=== PATIENT | female | born 1975 | race Hispanic/Latino ===

== ENCOUNTER 2018-10-13 05:05 | Emergency (ER) | payer BC, SELFPAY ==
[2018-10-13] MEDS ORDERED: Ketorolac Tromethamine 60 MG/2 ML VIAL ONE (05:22)
[2018-10-13] MEDS ORDERED: Dexamethasone 10 MG/ML VIAL ONE (05:22)
== END 2018-10-13 05:51 | disposition home or self-care (01) ==
LOC: ERS 05:05
DX: J02.9 Acute pharyngitis, unspecified (principal); H92.02 Otalgia, left ear; E10.9 Type 1 diabetes mellitus without complications
CPT/HCPCS: 96372; J1100; J1885

== ENCOUNTER 2019-02-03 21:17 | Emergency (ER) | payer SELFPAY ==
[2019-02-03] MEDS ORDERED: Acetaminophen 500 MG TAB ONE (22:50)
[2019-02-03 23:17] LABS: Hemoglobin 15.8 g/dL (12.0-16.0); Mean Corpuscular HGB CONC 34.6 g/dL (32.0-36.0); Mean Corpuscular Hemoglobin 30.3 pg (27.0-31.0); Mean Corpuscular Volume 87.6 fL (78.0-98.0); Mean Platelet Volume 9.2 fL (7.4-10.4); Platelet Count 166 thou/uL (130-400); RBC Distribution Width 12.1 % (11.5-14.5); Red Blood Cell (RBC) Count 5.23 mill/uL (4.20-5.40); White Blood Cell (WBC) Count 4.6 thou/uL (4.8-10.8)
[2019-02-03 23:35] LABS: ALT (SGPT) 37 U/L (8-55); AST (SGOT) 33 U/L (5-34); Albumin 4.1 g/dL (3.5-5.0); Alkaline Phosphatase 161 U/L (40-150); Anion Gap 16 mmol/L (10-20); BUN (Urea Nitrogen) 9 mg/dL (7.0-18.7); Bilirubin, Total 0.8 mg/dL (0.2-1.2); Calc. Creatinine Clearance 0 mL/min (70-130); Calcium 9.2 mg/dL (7.8-10.44); Carbon Dioxide 19 mmol/L (22-29); Chloride 103 mmol/L (98-107); Estimated GFR-MDRD 89; Globulin 3.6 g/dL (2.4-3.5); Glucose 269 mg/dL (70-105); Potassium 3.8 mmol/L (3.5-5.1); Protein, Total 7.7 g/dL (6.0-8.3); Sodium 134 mmol/L (136-145)
[2019-02-03 23:41] LABS: Band 11 % (5-11); Eosinophils 1 % (0-10); Lymphocytes 24 % (21-51); MDiff Complete? YES; Monocytes 4 % (0-10); Neutrophil 58 % (42-75); Reactive Lymphocytes 2 % (0-10)
--- NOTE | 2019-02-03 23:53 | CT ---
FCT head without contrast: Multiple axial tomograms obtained through the head without IV enhancement. INDICATIONS: Headache COMPARISON: None FINDINGS: Ventricles have normal size and position. No evidence of intracranial mass, hemorrhage, edema, or infarct. Visualized sinuses and mastoids appear clear. Bony calvarium appears unremarkable. IMPRESSION: No acute finding
[2019-02-04 00:50] LABS: Bilirubin Negative (Negative); Blood, Urine Negative (Negative); Clarity CLEAR (Clear); Glucose, Urine (Dipstick) >=1000 mg/dL (Negative); Leukocyte Negative (Negative); Nitrite Negative (Negative); Protein, Urine (Dipstick) 30 mg/dL (Neg-Trace); Specific Gravity, Urine 1.044 (1.002-1.036)
[2019-02-04 00:51] LABS: Pregnancy Test - Urine (BHCG) Negative (Negative); Pregu Control Background? CLEAR/WHITE (CLR/WHITE); Pregu Control Bar Appear? YES (CONTROL BAR); Specific Gravity 1.044 (1.002-1.036)
[2019-02-04 00:52] LABS: Bacteria/HPF 1+ HPF (None Seen); Hyaline Casts/LPF 4-6 HYALINE CAST LPF (0-3 Hyaline); Pathc Cast-AUWi Flag 1.08 (0-2.49)
== END 2019-02-04 01:57 | disposition home or self-care (01) ==
LOC: ERS 21:17
DX: R51 Headache (principal); E10.9 Type 1 diabetes mellitus without complications
CPT/HCPCS: 36415; 70450; 80053; 81003; 81015; 81025; 85025; 87804; 93005

== ENCOUNTER 2019-05-23 07:10 | Emergency (ER) | payer SELFPAY ==
--- NOTE | 2019-05-23 07:50 | RAD ---
EXAM: Chest Two Views 05/23/2019 7:48 AM HISTORY: Shortness of breath COMPARISON: None. FINDINGS: Heart: Normal in size and contour. Pulmonary vessels: Normal. Costophrenic angles: Clear. Lungs: No confluent pneumonia, overt edema, pleural effusion, or other acute process. Pneumothorax: None. Osseous structures:Intact. Additional findings: None. IMPRESSION: No significant acute intrathoracic disease.
[2019-05-23] MEDS ORDERED: Ketorolac Tromethamine 60 MG/2 ML VIAL ONE (07:58)
--- NOTE | 2019-05-26 13:04 | EKG ---
Test Reason : Blood Pressure : / mmHG Vent. Rate : 079 BPM Atrial Rate : 079 BPM P-R Int : 140 ms QRS Dur : 072 ms QT Int : 386 ms P-R-T Axes : 061 015 056 degrees QTc Int : 442 ms Sinus rhythm with frequent Premature ventricular complexes in a pattern of bigeminy Otherwise normal ECG Confirmed by ANNEMARIE CARPIO, SUNDAR Wilkerson ([id number]), news video editor BRADLEY LIEBERMAN ([id number]) on 05/26/2019 1:04:07 PM Referred By: Confirmed By:SUNDAR SHARPE MD
== END 2019-05-23 08:30 | disposition home or self-care (01) ==
LOC: ERS 07:10
DX: J02.9 Acute pharyngitis, unspecified (principal); R07.89 Other chest pain; E10.9 Type 1 diabetes mellitus without complications; Z79.84 Long term (current) use of oral hypoglycemic drugs
CPT/HCPCS: 71046; 93005; 96372; J1885

== ENCOUNTER 2019-05-23 16:46 | Observation (INO) | payer SELFPAY ==
[~2019-05-23 16:46] MED LIST: ISOVUE-370 76%-LOCM 1 ML ONE
[2019-05-23 19:21] LABS: #Basophils 0.1 thou/uL (0.0-0.2); #Eosinphils 0.1 thou/uL (0.0-0.7); #Monocytes 0.5 thou/uL (0.11-0.59); #Neutrophils 7.4 thou/uL (1.40-6.50); %Basophils 0.6 % (0.0-1.0); %Eosinophils 1.3 % (0.0-10.0); %Monocytes 4.8 % (0.0-10.0); %Neutrophils 66.3 % (42.0-75.0); Hemoglobin 14.9 g/dL (12.0-16.0); Mean Corpuscular HGB CONC 34.8 g/dL (32.0-36.0); Mean Corpuscular Hemoglobin 30.9 pg (27.0-31.0); Mean Corpuscular Volume 88.8 fL (78.0-98.0); Platelet Count 249 thou/uL (130-400); RBC Distribution Width 12.4 % (11.5-14.5); Red Blood Cell (RBC) Count 4.83 mill/uL (4.20-5.40); White Blood Cell (WBC) Count 11.2 thou/uL (4.8-10.8)
[2019-05-23 19:42] LABS: ALT (SGPT) 12 U/L (8-55); AST (SGOT) 15 U/L (5-34); Albumin 3.9 g/dL (3.5-5.0); Alkaline Phosphatase 96 U/L (40-150); Anion Gap 10 mmol/L (10-20); BUN (Urea Nitrogen) 16 mg/dL (7.0-18.7); Bilirubin, Total 0.3 mg/dL (0.2-1.2); CK (CPK) 40 U/L (29-168); Calc. Creatinine Clearance 0 mL/min (70-130); Calcium 9.4 mg/dL (7.8-10.44); Carbon Dioxide 27 mmol/L (22-29); Chloride 103 mmol/L (98-107); Estimated GFR-MDRD Greater than 90; Globulin 2.7 g/dL (2.4-3.5); Glucose 123 mg/dL (70-105); Potassium 4.2 mmol/L (3.5-5.1); Protein, Total 6.6 g/dL (6.0-8.3); Sodium 136 mmol/L (136-145)
--- NOTE | 2019-05-23 20:07 | CT ---
CT SOFT TISSUE NECK WITH IV CONTRAST 05/23/19 PROVIDED CLINICAL HISTORY: Tracheal pain and globus. FINDINGS: Minimal mucosal thickening involving the left maxillary sinus inferiorly. The visualized paranasal s inuses appear otherwise clear. The visualized globes and other visualized orbital contents appear nor mal. The submandibular and parotid glands demonstrate a normal CT appearance. The palatine tonsils appear normal. The epiglottis and aryepiglottic folds appear normal. The trachea , larynx, hypopharynx, and oral cavity appear normal. The osseous structures demonstrate no concerning lytic or blastic lesions. The regional major vascula r structures demonstrate no acute abnormality. No evidence for regional lymph node enlargement. IMPRESSION: No evidence for an acute process. POS: [facility]
[2019-05-23 22:34] LABS: Troponin I 0.018 ng/mL (< 0.028)
[2019-05-23 23:29] VITALS: BMI 27.1
[2019-05-23] MEDS ORDERED: Ketorolac Tromethamine 30 MG/ML VIAL IVP SCH (23:45)
[2019-05-24 00:07] LABS: Troponin I Less than 0.010 ng/mL (< 0.028)
[2019-05-24 02:49] LABS: Troponin I Less than 0.010 ng/mL (< 0.028)
[2019-05-24] MEDS ORDERED: Ibuprofen 600 MG TAB PO PRN (06:40)
[2019-05-24] MEDS ORDERED: Ibuprofen 600 MG TAB PO SCH (06:45)
[2019-05-24] MEDS ORDERED: Aspirin 325 MG TAB PO SCH (08:00)
[2019-05-24] MEDS ORDERED: Acetaminophen 325 MG TAB PO PRN (09:27)
[2019-05-24] MEDS ORDERED: Senokot S 8.6-50 MG TAB PO PRN (09:27)
[2019-05-24] MEDS ORDERED: Dextrose 5% in Water 1,000 ML IV PRN (09:42)
[2019-05-24] MEDS ORDERED: Insulin Regular 300 UNITS/3 ML VIAL SC PRN ×2 (09:42)
[2019-05-24] MEDS ORDERED: Dextrose 50% Abboject 50 ML SYRINGE SLOW IVP PRN (09:42)
[2019-05-24] MEDS ORDERED: HumaLOG 300 UNITS/3 ML VIAL SC PRN (09:42)
[2019-05-24 10:09] LABS: Cardiac Risk 5.3 (Less than 4.5)
--- NOTE | 2019-05-24 10:23 | HP ---
PRIMARY CARE PHYSICIAN: Praveen Harrison DO. CHIEF COMPLAINT: Upper chest discomfort with difficulty breathing, which is intermittent for the last 3 weeks. HISTORY OF PRESENT ILLNESS: Ms. Pappas is a 43-year-old female, who presented to the emergency room on 05/23 for evaluation of shortness of breath. She reports that she has been having these episodes over the last 3 weeks intermittently, lasts about 10-15 minutes, where she feels this pressure pain in upper chest that radiates into her neck, describes as kind of a choking sensation. Reports that when she gets up and walks around and tries to relax and slow her breathing, it gets better. She reports that it has woken her up from sleep. EKG in the emergency room showed sinus rhythm 79 beats per minute with frequent premature ventricular complex in a pattern of bigeminy. ST segments were normal. T-waves were normal. Mckinney was normal. Chest x-ray was negative. No acute process. Troponins x4 were undetectable. Labs were mostly unremarkable. Past medical history includes she is diabetic type 1, but does take some metformin and Tresiba, and hyperlipidemia. The patient had a CT of the neck while in the emergency room, which showed no acute findings. She was admitted to the observation unit for further risk stratification and management. REVIEW OF SYSTEMS: Reports chest pain. Reports some shortness of breath. Feels something is in her throat. Reports that she has a hard time breathing when these episodes appear. She denies cough, cyanosis, or sputum. Denies stridor. Denies wheezing. All other systems are negative unless mentioned in the HPI. PAST MEDICAL HISTORY: Pertinent for history of type 1 diabetes, hyperlipidemia. PAST SURGICAL HISTORY: Tubal ligation and also had a hip surgery on the left. PSYCHIATRIC HISTORY: None. SOCIAL HISTORY: Denies any alcohol or drug use. Has no smoking history. Lives at home with her family. FAMILY HISTORY: She denies any family history of any coronary artery disease, heart attacks, or strokes. Does report both mom and dad have diabetes. KNOWN ALLERGIES: Penicillins. HOME MEDICATIONS: Include, 1. Advil 600 mg p.o. daily. 2. Tresiba 40 units subcu b.i.d. 3. Metformin 1000 mg p.o. b.i.d. 4. Atorvastatin 10 mg p.o. q.p.m. PHYSICAL EXAMINATION: VITAL SIGNS: Blood pressure 100/57, pulse 76, respiratory rate 18, pO2 sats 98% on room air. CONSTITUTIONAL: The patient appears in no distress. She is alert and oriented to person, place, and time. HEENT: Head is atraumatic and normocephalic. Eyes; eyelids are normal to inspection. Pupils equally round and reactive to light. ENT; mouth exam is normal. Pharynx exam is normal. There is no tongue elevation. Mucous membranes are moist. NECK: Normal range of motion. No tenderness. No signs of any meningismus. RESPIRATORY/CHEST: Breath sounds are clear. Chest movement is symmetrical. CARDIOVASCULAR: Regular heart rate and rhythm. Frequent PVCs. Heart sounds are normal. S1 and S2. No murmurs. ABDOMEN: Nontender. Bowel sounds are heard. BACK: Normal range of motion. No tenderness. No CVA tenderness. EXTREMITIES: Upper extremity inspection is normal. No abrasions. No contusions. Radial pulses are normal. Lower extremity, normal range of motion. Motor strength is normal. Radial pulses are normal. Lower extremity, normal inspection, no abrasions. Pedal pulses are normal. NEUROLOGIC: Speech is normal. The patient is oriented to person, place, and time. No focal motor or sensory deficits. SKIN: Warm, dry, and normal in color. PSYCH: Has a normal affect. IMPRESSION AND PLAN: 1. Atypical chest pain in the context of an EKG, which shows frequent premature ventricular complexes in a pattern of bigeminy. She is a type 1 diabetic. She has not had any cardiac testing. We will proceed with a stress test, check lipids, TSH. 2. Type 1 diabetes. We will order Accu-Chek's a.c. and at bedtime. Hold metformin for now. Add a sliding scale insulin for coverage. 3. Hyperlipidemia. We will restart home medications. 4. Gastrointestinal and deep venous thrombosis prophylaxis has been started. 5. Hospital course dependent on clinical findings. Job ID: [id number]
[2019-05-24] MEDS ORDERED: ADENOSINE 60 MG/20 ML VIAL ONE (12:31)
--- NOTE | 2019-05-24 14:38 | NM ---
EXAM: CARDIAC SPECT HISTORY: Chest pain TECHNIQUE: A myocardial perfusion scan was performed using the single isotope 1 day protocol with yolande hnetium 99m sestamibi. [10 mCi] was injected intravenously for the rest exam followed by 30 mCi for the stress study. Pharmacologic stress with adenosine was monitored and interpreted by Dr. Reeder FINDINGS: Homogeneous tracer distribution is seen in the myocardial segments on stress and rest image s without fixed or reversible defects. Gated SPECT LVEF: 61% Wall motion exam: Normal IMPRESSION: Normal myocardial perfusion scan
[2019-05-24] MEDS ORDERED: Atorvastatin Calcium 40 MG TAB PO SCH (15:00)
[2019-05-24 15:32] VITALS: BP 105/57; TEMP 98
[2019-05-24] MEDS ORDERED: Famotidine 20 MG TAB PO SCH (21:00)
[2019-05-25] MEDS ORDERED: Enoxaparin Sodium 30 MG/0.3 ML SYRINGE SC SCH (09:00)
== END 2019-05-24 17:16 | disposition home or self-care (01) ==
LOC: ERS 16:46 → 2SW 20:00
PROVIDERS: ADMIT Internal Medicine; ATTEND Internal Medicine
DX: R07.89 Other chest pain (principal); R06.02 Shortness of breath; R00.8 Other abnormalities of heart beat; E78.5 Hyperlipidemia, unspecified; E10.9 Type 1 diabetes mellitus without complications; Z79.84 Long term (current) use of oral hypoglycemic drugs; Z79.899 Other long term (current) drug therapy; Z88.0 Allergy status to penicillin
CPT/HCPCS: 36415; 36416; 70491; 78452; 80053; 80061; 82550; 83735; 84443; 84484; 85025; 93005; 93017; 96374; A9500; G0378; J0153; J1885; Q9966

== ENCOUNTER 2019-05-28 21:55 | Emergency (ER) | payer SELFPAY ==
[2019-05-28 22:33] LABS: #Eosinphils 0.1 thou/uL (0.0-0.7); #Lymphocytes 2.8 thou/uL (1.20-3.40); #Monocytes 0.5 thou/uL (0.11-0.59); #Neutrophils 4.9 thou/uL (1.40-6.50); %Basophils 0.5 % (0.0-1.0); %Eosinophils 0.9 % (0.0-10.0); %Lymphocytes 34.1 % (21.0-51.0); %Monocytes 5.4 % (0.0-10.0); %Neutrophils 59.1 % (42.0-75.0); Mean Corpuscular HGB CONC 34.4 g/dL (32.0-36.0); Mean Corpuscular Hemoglobin 30.5 pg (27.0-31.0); Mean Corpuscular Volume 88.7 fL (78.0-98.0); Mean Platelet Volume 8.7 fL (7.4-10.4); Platelet Count 221 thou/uL (130-400); RBC Distribution Width 12.2 % (11.5-14.5); White Blood Cell (WBC) Count 8.3 thou/uL (4.8-10.8)
--- NOTE | 2019-05-28 22:39 | RAD ---
Portable chest: HISTORY: Syncope weakness COMPARISON: 07/03/2013 FINDINGS: Lung paiz are clear. Heart and mediastinum appear unremarkable. Vascularity is normal. Visualized osseous structures unremarkable. IMPRESSION: No acute finding
[2019-05-28 22:45] LABS: BHCG - Serum Negative (NEGATIVE); Pregs Control Background? CLEAR/WHITE (CLR/WHITE); Pregs Control Bar Appear? YES (CONTROL BAR)
[2019-05-28 22:50] LABS: ALT (SGPT) 12 U/L (8-55); AST (SGOT) 13 U/L (5-34); Albumin 3.9 g/dL (3.5-5.0); Alkaline Phosphatase 87 U/L (40-150); Anion Gap 13 mmol/L (10-20); BUN (Urea Nitrogen) 15 mg/dL (7.0-18.7); Bilirubin, Total 0.5 mg/dL (0.2-1.2); Calc. Creatinine Clearance 0 mL/min (70-130); Calcium 9.2 mg/dL (7.8-10.44); Carbon Dioxide 23 mmol/L (22-29); Chloride 105 mmol/L (98-107); Estimated GFR-MDRD 88; Globulin 2.7 g/dL (2.4-3.5); Glucose 184 mg/dL (70-105); Potassium 4.1 mmol/L (3.5-5.1); Protein, Total 6.6 g/dL (6.0-8.3); Sodium 137 mmol/L (136-145)
[2019-05-28 22:52] LABS: Acetaminophen Less than 6.0 mcg/mL (10.0-30.0); Alcohol Less than 10 mg/dL (Less than 10); Salicylate Less than 8.0 mg/dL (15.0-30.0)
[2019-05-28] MEDS ORDERED: Lorazepam 2 MG/ML VIAL ONE (22:53)
--- NOTE | 2019-05-28 22:55 | CT ---
CT head without contrast: Multiple axial tomograms obtained through the head without IV enhancement. INDICATIONS: Headache COMPARISON: None FINDINGS: Ventricles have normal size and position. No evidence of intracranial mass, hemorrhage, edema, or infarct. Visualized sinuses and mastoids appear clear. Bony calvarium appears unremarkable. IMPRESSION: No acute finding
--- NOTE | 2019-05-28 22:57 | CT ---
CT cervical spine without contrast: Multiple axial tones obtained through cervical spine with multiplanar reconstruction. INDICATIONS: trauma with cervical spine injury COMPARISON: none FINDINGS: Cervical vertebra maintain normal height and alignment.. Disc spaces are normal. Posterior elements are normally aligned. No evidence of fracture. IMPRESSION: No acute finding
[2019-05-28 23:48] LABS: Bilirubin Negative (Negative); Blood, Urine Negative (Negative); Clarity Clear (Clear); Glucose, Urine (Dipstick) 200 mg/dL (Negative); Leukocyte Negative Leu/uL (Negative); Nitrite Negative (Negative); Protein, Urine (Dipstick) Negative (Neg-Trace); Urobilinogen Normal mg/dL (Less than 2)
[2019-05-29 00:02] LABS: Amphetamine Not Detected (NotDetected); Barbiturates Screen Not Detected (NotDetected); Benzodiazepine Screen Not Detected (NotDetected); Cocaine Metabolite Screen Not Detected (NotDetected); Medtox Control Line Valid? VALID (VALID); Medtox Reader # READER 4; Methadone Not Detected (NotDetected); Methamphetamine Not Detected (NotDetected); Opiate Screen Not Detected (NotDetected); Oxycodone Screen Not Detected (NotDetected); Phencyclidine (PCP) Not Detected (NotDetected); THC/Cannabinoid Screen Not Detected (NotDetected); Tricyclic Screen Not Detected (NotDetected)
== END 2019-05-29 00:06 | disposition home or self-care (01) ==
LOC: ERS 21:55
DX: R55 Syncope and collapse (principal); E10.9 Type 1 diabetes mellitus without complications; Z79.84 Long term (current) use of oral hypoglycemic drugs; Z79.899 Other long term (current) drug therapy
CPT/HCPCS: 36415; 70450; 71045; 72125; 80053; 80306; 80307; 81003; 84484; 84703; 85025; 93005; 94760; 96374; J2060

== ENCOUNTER 2020-07-21 16:40 | Observation (INO) | payer OTHER, SELFPAY ==
[2020-07-21 17:17] LABS: #Lymphocytes 0.9 thou/uL (1.20-3.40); #Monocytes 0.5 thou/uL (0.11-0.59); #Neutrophils 8.9 thou/uL (1.40-6.50); %Eosinophils 0.2 % (0.0-10.0); %Lymphocytes 8.5 % (21.0-51.0); %Monocytes 4.4 % (0.0-10.0); %Neutrophils 86.9 % (42.0-75.0); Hemoglobin 15.4 g/dL (12.0-16.0); Mean Corpuscular HGB CONC 35.2 g/dL (32.0-36.0); Mean Corpuscular Hemoglobin 31.1 pg (27.0-31.0); Mean Corpuscular Volume 88.5 fL (78.0-98.0); Mean Platelet Volume 9.2 fL (7.4-10.4); Platelet Count 219 thou/uL (130-400); Red Blood Cell (RBC) Count 4.94 mill/uL (4.20-5.40); White Blood Cell (WBC) Count 10.3 thou/uL (4.8-10.8)
--- NOTE | 2020-07-21 17:26 | CT ---
Head CT without contrast 07/21/2020: COMPARISON: 05/28/2019 HISTORY: Lightheaded and dizzy, syncope, possible seizure activity TECHNIQUE: Axial CT imaging at 5 mm intervals from vertex through skull base without contrast FINDINGS: The visualized paranasal sinuses and mastoid air cells appear well-aerated. No displaced ca lvarial fracture, intracranial hemorrhage, midline shift, or mass effect. IMPRESSION: No acute findings. Results called to Dr. Diaz at 5:22 PM 07/21/2020
[2020-07-21 17:29] LABS: BHCG - Serum Negative (NEGATIVE); Pregs Control Background? CLEAR/WHITE (CLR/WHITE); Pregs Control Bar Appear? YES (CONTROL BAR)
--- NOTE | 2020-07-21 17:35 | RAD ---
Portable frontal chest radiograph: 07/21/2020 COMPARISON: 05/28/2019 HISTORY: Syncope, pain FINDINGS: Lungs are clear. Heart and mediastinal contours appear within normal limits. IMPRESSION: No acute findings.
--- NOTE | 2020-07-21 17:39 | CT ---
CT angiogram chest: 07/21/2020 COMPARISON: None HISTORY: Chest pain, lightheaded, syncope TECHNIQUE: Axial CT imaging at 2.5 mm intervals through the chest with IV contrast using CT angiogram protocol. Coronal and oblique sagittal 3-D reformatted imaging obtained. FINDINGS: The visualized upper abdomen appears grossly unremarkable. No pleural, pericardial, or medi astinal fluid is seen. No lymphadenopathy is noted within the chest. No pneumothorax. No significant pulmonary parenchymal opacity. Mild bibasilar atelectatic change. No evidence for acute pulmonary arterial embolism. No acute osseous abnormality. IMPRESSION: No acute findings.
[2020-07-21 17:46] LABS: ALT (SGPT) 17 U/L (8-55); AST (SGOT) 12 U/L (5-34); Albumin 3.9 g/dL (3.5-5.0); Alkaline Phosphatase 99 U/L (40-110); Anion Gap 15 mmol/L (10-20); BUN (Urea Nitrogen) 10 mg/dL (7.0-18.7); Calc. Creatinine Clearance 0 mL/min (70-130); Calcium 8.1 mg/dL (7.8-10.44); Carbon Dioxide 20 mmol/L (22-29); Chloride 101 mmol/L (98-107); Estimated GFR-MDRD 84; Glucose 335 mg/dL (70-105); Lipase 11 U/L (8-78); Potassium 3.8 mmol/L (3.5-5.1); Protein, Total 6.9 g/dL (6.0-8.3); Sodium 132 mmol/L (136-145)
[2020-07-21] MEDS ORDERED: Enoxaparin Sodium 100 MG/ML SYRINGE ONE (19:23)
[2020-07-21 20:34] LABS: Troponin I Less than 0.010 ng/mL (< 0.028)
[2020-07-21 21:55] VITALS: BMI 26.4
[2020-07-21] MEDS ORDERED: Dextrose 5% in Water 1,000 ML IV PRN (22:07)
[2020-07-21] MEDS ORDERED: Dextrose 50% Abboject 50 ML SYRINGE SLOW IVP PRN (22:07)
[2020-07-21] MEDS ORDERED: HumaLOG 300 UNITS/3 ML VIAL SC PRN (22:07)
[2020-07-21 23:37] LABS: Troponin I Less than 0.010 ng/mL (< 0.028)
[2020-07-21] MEDS ORDERED: Ibuprofen 600 MG TAB PO PRN (23:43)
--- NOTE | 2020-07-21 23:53 | PDOC.HHP ---
Hospitalist HPI - History of Present Illness left side weakness History of Present Illness: PCP: Dr. Andrade Patient is a 44-year-old female with past medical history significant for hyperlipidemia, GERD, diabetes type 2, and depression. She states that she woke up this morning and her left arm was tingling. She was able to go to work but throughout the day she began to feel dizzy, had chest pain, with headache and nausea. As her shift went on she noticed she was getting weaker on her left side. At one point she feels like she almost passed out and her coworker was able to walk her to the health office. EMS was called at that time and brought her to the hospital. She states when she was in the ambulance she was unable to feel the paramedics touch her left side. Since that time she has recovered some sensation in her left side but still feels she is extremely weak in her upper and lower extremity on the left. The dizziness has resolved along with the headache and nausea. She still experiences some chest pain, however, it is reproducible with palpation and she states it is also in her upper shoulders. 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 She states that this chest pain has been going on for months. Patient states she has been compliant with her medications although she has not been checking her blood sugars at home. ED Course: VITAL SIGNS TueJul 21, 2020 16:45 KASIA Cordova Cullen BP: 115/81, Pulse: 105, Resp: 16, Temp: 99.2 (Oral), Pain: 8, O2 sat: 94 on ( Room Air), Time: 07/21/2020 16:45. VITAL SIGNS TueJul 21, 2020 17:54 KASIA Cordova Cullen BP: 119/79, Pulse: 86, Resp: 16, O2 sat: 97 on (Room Air), Time: 07/21/2020 17: 54. VITAL SIGNS TueJul 21, 2020 17:58 KASIA Cordova Cullen Resp: 17, Temp: 98.4 (Oral), Pain: 7.5, Time: 07/21/2020 17:58. VITAL SIGNS TueJul 21, 2020 19:14 KASIA Jain Julia BP: 112/74, Pulse: 90, Resp: 20, Pain: 4, O2 sat: 98 on (Room Air), Time: 2019 19:14. Today in the ER they completed lab work, EKG, brain CT, chest x-ray, chest and thorax CTA. She had full dose aspirin and full dose Lovenox administered along with 1 L of normal saline. Hospitalist ROS - Review of Systems Constitutional: reports: weakness Respiratory: denies: cough, dry, shortness of breath, hemoptysis, SOB with excertion, pleuritic pain, sputum, wheezing, other Cardiovascular: reports: chest pain (Reproducible with palpation) Gastrointestinal: reports: nausea (Resolved currently) Musculoskeletal: reports: shoulder pain (Muscular) Neurological: reports: weakness (Left side upper and lower extremity), numbness (Left side) All other systems reviewed; all pertinent +/- noted in HPI/Subj - Medication Medications: Allergies: Penicillin Current medications: metFORMIN TABLET : Strength - 1,000 mg : ORAL Patient Dose: 1000 mg Oral 2 times a day Hospitalist History - Past Medical History Source: patient Cardiac: reports: Hyperlipidemia Gastrointestinal: reports: GERD Psych: reports: Depression Endocrine: reports: Diabetes - Past Surgical History Past Surgical History: reports: Tubal Ligation - Family History Family History: reports: no pertinent history - Social History Smoking Status: Never smoker Alcohol: reports: None Drugs: reports: none Living Situation: With Family Activity level: independent ambulation - Exam General Appearance: NAD, awake alert Neck: supple, no lymphadenopathy Heart: RRR, no murmur, no gallops, no rubs, normal peripheral pulses Respiratory: CTAB, no wheezes, no rales, no ronchi, normal chest expansion Gastrointestinal: soft, non-tender, non-distended, normal bowel sounds, no palpable masses Neurological: cranial nerve grossly intact Neurological - other findings: cerebellar intact, sensation improving to L side Musculoskeletal - other findings: L side numbness/weakness, drift to L arm, drop to L leg, Psychiatric: normal affect Hospitalist Results - Labs Result Diagrams: 07/21/20 17:02 07/21/20 17:02 Lab results: WBC 10.3 thou/uL (4.8-10.8) 07/21/20 17:02 Hgb 15.4 g/dL (12.0-16.0) 07/21/20 17:02 Hct 43.7 % (36.0-47.0) 07/21/20 17:02 MCV 88.5 fL (78.0-98.0) 07/21/20 17:02 Plt Count 219 thou/uL (130-400) 07/21/20 17:02 Neutrophils % 86.9 % (42.0-75.0) H 07/21/20 17:02 Sodium 132 mmol/L (136-145) L 07/21/20 17:02 Potassium 3.8 mmol/L (3.5-5.1) 07/21/20 17:02 Chloride 101 mmol/L (98-107) 07/21/20 17:02 Carbon Dioxide 20 mmol/L (22-29) L 07/21/20 17:02 BUN 10 mg/dL (7.0-18.7) 07/21/20 17:02 Creatinine 0.74 mg/dL (0.6-1.1) 07/21/20 17:02 Glucose 335 mg/dL (70-105) H 07/21/20 17:02 Calcium 8.1 mg/dL (7.8-10.44) 07/21/20 17:02 Total Bilirubin 1.0 mg/dL (0.2-1.2) 07/21/20 17:02 AST 12 U/L (5-34) 07/21/20 17:02 ALT 17 U/L (8-55) 07/21/20 17:02 Alkaline Phosphatase 99 U/L (40-110) 07/21/20 17:02 Troponin I Less than 0.010 ng/mL (< 0.028) 07/21/20 23:05 Serum Total Protein 6.9 g/dL (6.0-8.3) 07/21/20 17:02 Albumin 3.9 g/dL (3.5-5.0) 07/21/20 17:02 Lipase 11 U/L (8-78) 07/21/20 17:02 Laboratory Tests 07/21/20 07/21/20 07/21/20 17:02 17:08 19:39 Troponin I Less than 0.010 Less than 0.010 Serum , Qual Negative - EKG Interpretation EKG: Sinus tachycardia 101 beats a minute - Radiology Interpretation CT scan - chest Status: report reviewed by me Additional Comment: TECHNIQUE: Axial CT imaging at 2.5 mm intervals through the chest with IV contrast using CT angiogram protocol. Coronal and oblique sagittal 3-D reformatted imaging obtained. FINDINGS: The visualized upper abdomen appears grossly unremarkable. No pleural , pericardial, or medi astinal fluid is seen. No lymphadenopathy is noted within the chest. No pneumothorax. No significant pulmonary parenchymal opacity. Mild bibasilar atelectatic change. No evidence for acute pulmonary arterial embolism. No acute osseous abnormality. IMPRESSION: No acute findings. Chest x-ray Status: image reviewed by me, report reviewed by me Additional Comment: FINDINGS: Lungs are clear. Heart and mediastinal contours appear within normal limits. IMPRESSION: No acute findings. CT scan - head Status: report reviewed by me Additional Comment: FINDINGS: The visualized paranasal sinuses and mastoid air cells appear well- aerated. No displaced ca lvarial fracture, intracranial hemorrhage, midline shift, or mass effect. IMPRESSION: No acute findings. 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 PT and OT evaluation, patient normally fully ambulatory independently however is needing assistance tonight Start aspirin and low-dose statin FLP in a.m. MRI brain, ultrasound of carotids, echo ordered for a.m. Dysphagia screening prior to eating Chest pain Troponins x3 were negative No events on telemetry Pain is reproducible with palpation and has been active for months PRN pain medication available for patient Diabetes type 2 Monitor Accu-Cheks AC at bedtime Hold metformin at this time due to CTA completed in ER Mild sliding scale insulin Diet heart healthy and carb control Hyponatremia Start IV fluids Repeat BMP in a.m. History of hyperlipidemia FLP in a.m. Low-dose statin ordered GERD Protonix restarted, patient takes at home VTE and GI prophylaxis in place CODE STATUS: Full Surrogate decision-maker: , Huseyin Pappas
[2020-07-22] MEDS: Sodium Chloride 0.9% 1,000 ML IV SCH ×2 (01:51→17:53)
[2020-07-22 04:54] LABS: #Lymphocytes 1.9 thou/uL (1.20-3.40); #Monocytes 0.4 thou/uL (0.11-0.59); #Neutrophils 4.9 thou/uL (1.40-6.50); %Basophils 0.6 % (0.0-1.0); %Eosinophils 0.5 % (0.0-10.0); %Lymphocytes 25.8 % (21.0-51.0); %Monocytes 5.3 % (0.0-10.0); %Neutrophils 67.8 % (42.0-75.0); Mean Corpuscular HGB CONC 35.2 g/dL (32.0-36.0); Mean Corpuscular Hemoglobin 31.8 pg (27.0-31.0); Mean Corpuscular Volume 90.4 fL (78.0-98.0); Platelet Count 189 thou/uL (130-400); RBC Distribution Width 11.9 % (11.5-14.5); Red Blood Cell (RBC) Count 4.39 mill/uL (4.20-5.40); White Blood Cell (WBC) Count 7.3 thou/uL (4.8-10.8)
[2020-07-22 05:19] LABS: Anion Gap 11 mmol/L (10-20); BUN (Urea Nitrogen) 9 mg/dL (7.0-18.7); Calc. Creatinine Clearance 103 mL/min (70-130); Calcium 7.6 mg/dL (7.8-10.44); Carbon Dioxide 21 mmol/L (22-29); Cardiac Risk 6.1 (Less than 4.5); Chloride 106 mmol/L (98-107); Cholesterol 207 mg/dl (< 200 Desired); Estimated GFR-MDRD Greater than 90; Glucose 246 mg/dL (70-105); HDL Cholesterol 34 mg/dL (>60 Neg Risk); Potassium 3.4 mmol/L (3.5-5.1); Sodium 135 mmol/L (136-145); Triglycerides 435 mg/dL (Less than 150)
[2020-07-22] MEDS: HumaLOG 300 UNITS/3 ML VIAL SC PRN ×2 (07:30→12:04)
--- NOTE | 2020-07-22 07:30 | ULT ---
BILATERAL CAROTID DUPLEX ULTRASOUND: HISTORY: Syncope. Chest pain. Lightheadedness. TECHNIQUE: Grayscale, color-flow and spectral Doppler ultrasound imaging of the extracranial carotid artery syst ems and vertebral arteries was performed bilaterally. FINDINGS: No large amount of echogenic plaque is seen involving the common carotid or internal carotid arteries . The peak systolic velocity in the right ICA measures 81.4 cm/s. The peak systolic velocity in the ri ght CCA measures 87.1 cm/s. The peak systolic velocity in the left ICA measures 71.5 cm/s. The peak systolic velocity in the l eft CCA measures 94.6 cm/s. The right IC/CC ration is0.93. The left IC/CC ratio is 0.73. Vertebral flow: antegrade, bilaterally. . Incidentals: Enlarged right neck lymph nodes. IMPRESSION: 1. No hemodynamically significant stenosis of either cervical carotid artery 2. Enlarged right neck lymph node with preserved fatty hilum measuring 1.9 x 0.9 cm. Second right nec k lymph node without fatty hilum measuring 1.2 x 0.6 cm. Postcontrast soft tissue neck CT is recommended. CODE T
--- NOTE | 2020-07-22 08:41 | MRI ---
Exam: Brain MRI without contrast HISTORY: Transient ischemic attack COMPARISON: None FINDINGS: Calvarial marrow signal intensity: Appropriate T1 signal Gradient echo sequence: No hemorrhage Brain parenchyma: No mass, mass effect or midline shift. Brain volume, age-appropriate. Cortical bourgeois-white matter differentiation: Preserved Restricted diffusion: Central arterial flow voids are maintained. Absent restricted diffusion White matter signal intensities: T2, FLAIR white matter hyperintensities due to chronic small vessel ischemic changes Sinuses: Adequate aeration of the paranasal sinuses and mastoid air cells. IMPRESSION: Absent restricted diffusion. No acute infarct.
[2020-07-22] MEDS: Pantoprazole 40 MG GRANULES PACKET PO SCH (08:49)
[2020-07-22] MEDS: Aspirin 81 mg Enteric Coated Tablet PO SCH (08:49)
[2020-07-22] MEDS: Insulin Glargine 40 UNITS in Pre-Filled Syringe 1 EACH SC SCH ×2 (08:49→20:25)
[2020-07-22] MEDS ORDERED: INSULIN DEGLUDEC 40 UNIT SQ SCH (09:00)
--- NOTE | 2020-07-22 12:42 | CON ---
NEUROLOGY CONSULTATION DATE OF CONSULTATION: 07/22/2020 REASON FOR CONSULTATION: Acute onset left-sided weakness. HISTORY OF PRESENT ILLNESS: Ms. Pappas is a 44-year-old female with medical history significant for hyperlipidemia, gastroesophageal reflux disease, diabetes, and depression, presented on the morning of 07/21/2020 with left arm tingling and paresthesias. Per patient, she was able to go to work but felt dizzy all day with chest pain and nausea and headache. As she went on, she noted she was getting weaker on the left side and fell as she almost passed out. EMS was called and she was brought to the hospital in the ambulance. In the ambulance, she was unable to feel the paramedics touch her left side. Her sensation improved when she arrived in the emergency room and dizziness resolved along with headache and nausea. She still has occasional chest pain. 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 The patient denies problems with speech, swallowing, recent illness or exposure to COVID. REVIEW OF SYSTEMS: All 14 systems were reviewed and were negative except the pertinent positive and negative mentioned in the HPI. ED course in the emergency room; EKG was done, which shows normal sinus rhythm. Head CT did not reveal any acute intracranial pathology. Chest x-ray was essentially unremarkable. She was given a full dose of aspirin and full dose of Lovenox along with normal saline and transferred to the floor for further evaluation. MEDICATIONS: Home medications; metformin 1000 mg two times a day. ALLERGIES: PENICILLIN. PAST MEDICAL HISTORY: Hyperlipidemia, gastroesophageal reflux disease, depression, diabetes. PAST SURGICAL HISTORY: Tubal ligation. FAMILY HISTORY: No family history of stroke. SOCIAL HISTORY: The patient denies smoking, alcohol, illegal drug use. PHYSICAL EXAMINATION: General Appearance: NAD, awake alert Neck: supple, no lymphadenopathy Heart: RRR, no murmur, no gallops, no rubs, normal peripheral pulses Respiratory: CTAB, no wheezes, no rales, no ronchi, normal chest expansion Gastrointestinal: soft, non-tender, non-distended, normal bowel sounds, no palpable masses Neurological: Mental status; the patient is alert and oriented to person, place , and time. Speech is clear. Recent and remote memory intact. Cranial nerves 2 through 12 intact. Motor; muscle tone and bulk are normal. Strength, mild left hemiparesis. Sensory, decreased sensation to touch on the left upper and lower extremity. Positive left pronator drift. Gait deferred due to the patient's safety reason. DATA REVIEWED: I reviewed the labs, which are significant for hyponatremia [address] scan did not reveal any acute intracranial pathology. Lab results: WBC 10.3 thou/uL (4.8-10.8) 07/21/20 17:02 Hgb 15.4 g/dL (12.0-16.0) 07/21/20 17:02 Hct 43.7 % (36.0-47.0) 07/21/20 17:02 MCV 88.5 fL (78.0-98.0) 07/21/20 17:02 Plt Count 219 thou/uL (130-400) 07/21/20 17:02 Neutrophils % 86.9 % (42.0-75.0) H 07/21/20 17:02 Sodium 132 mmol/L (136-145) L 07/21/20 17:02 Potassium 3.8 mmol/L (3.5-5.1) 07/21/20 17:02 Chloride 101 mmol/L (98-107) 07/21/20 17:02 Carbon Dioxide 20 mmol/L (22-29) L 07/21/20 17:02 BUN 10 mg/dL (7.0-18.7) 07/21/20 17:02 Creatinine 0.74 mg/dL (0.6-1.1) 07/21/20 17:02 Glucose 335 mg/dL (70-105) H 07/21/20 17:02 Calcium 8.1 mg/dL (7.8-10.44) 07/21/20 17:02 Total Bilirubin 1.0 mg/dL (0.2-1.2) 07/21/20 17:02 AST 12 U/L (5-34) 07/21/20 17:02 ALT 17 U/L (8-55) 07/21/20 17:02 Alkaline Phosphatase 99 U/L (40-110) 07/21/20 17:02 Troponin I Less than 0.010 ng/mL (< 0.028) 07/21/20 23:05 Serum Total Protein 6.9 g/dL (6.0-8.3) 07/21/20 17:02 Albumin 3.9 g/dL (3.5-5.0) 07/21/20 17:02 Lipase 11 U/L (8-78) 07/21/20 17:02 Laboratory Tests 07/21/20 07/21/20 07/21/20 17:02 17:08 19:39 Troponin I Less than 0.010 Less than 0.010 Serum , Qual Negative - EKG Interpretation EKG: Sinus tachycardia 101 beats a minute - Radiology Interpretation CT scan - chest Status: report reviewed by me Additional Comment: TECHNIQUE: Axial CT imaging at 2.5 mm intervals through the chest with IV contrast using CT angiogram protocol. Coronal and oblique sagittal 3-D reformatted imaging obtained. FINDINGS: The visualized upper abdomen appears grossly unremarkable. No pleural , pericardial, or medi astinal fluid is seen. No lymphadenopathy is noted within the chest. No pneumothorax. No significant pulmonary parenchymal opacity. Mild bibasilar atelectatic change. No evidence for acute pulmonary arterial embolism. No acute osseous abnormality. IMPRESSION: No acute findings. Chest x-ray Status: image reviewed by me, report reviewed by me Additional Comment: FINDINGS: Lungs are clear. Heart and mediastinal contours appear within normal limits. IMPRESSION: No acute findings. CT scan - head Status: report reviewed by me Additional Comment: FINDINGS: The visualized paranasal sinuses and mastoid air cells appear well- aerated. No displaced ca lvarial fracture, intracranial hemorrhage, midline shift, or mass effect. IMPRESSION: No acute findings. ASSESSMENT AND PLAN: (1) TIA Status: Acute (2) Diabetes mellitus, type 2 Status: Chronic Qualifiers: Diabetes mellitus group home insulin use: without group home use (3) Hyperlipidemia Code(s): E78.5 - HYPERLIPIDEMIA, UNSPECIFIED Status: Chronic (4) Hyponatremia Code(s): E87.1 - HYPO-OSMOLALITY AND HYPONATREMIA Status: Acute (5) GERD (gastroesophageal reflux disease) Code(s): K21.9 - GASTRO-ESOPHAGEAL REFLUX DISEASE WITHOUT ESOPHAGITIS Status: Chronic (6) Chest pain Code(s): R07.9 - CHEST PAIN, UNSPECIFIED Status: Acute Ms. Charlene Pappas is a 44-year-old female, who was consulted for acute-onset numbness and paresthesias of the left upper and lower extremity which were most likely TIA versus stroke. Consider MRI of the brain to rule out acute intracranial process. 2D echo pending. , Carotid Doppler did not show any significant stenosis. Telemetry. Neuro checks every 4. Consider aspirin and high-intensity statin for secondary stroke prevention. Check fasting lipid panel, hemoglobin A1c, and TSH. Continue home medications. Continue medical management per primary team. PT/OT/Speech. DVT prophylaxis. We will continue to follow. Thank you for the consult. Job ID: [id number] MARY
[2020-07-22 13:04] LABS: SARS-CoV-2 MS2 Positive; SARS-CoV-2 N Gene Negative; SARS-CoV-2 S Gene Negative; SARS-CoV-2 by NAA Not Detected (NotDetected); SARS-CoV-2 orf1ab Negative
--- NOTE | 2020-07-22 15:34 | PDOC.HOSPP ---
- Subjective Encounter Date: 07/22/20 Subjective: Patient reports feeling better since admission. She has more strength in her left arm and leg now, however, she has ongoing numbness and tingling of her left arm and leg. Denies chest pain, shortness of breath, abdominal pain. - Objective Vital Signs & Weight: Vital Signs (12 hours) Temp Pulse Pulse Pulse Pulse Resp BP 07/22/20 12:11 76 84 76 86/60 L 07/22/20 11:30 97.7 F 73 18 07/22/20 10:47 73 75 99/66 07/22/20 07:53 97.5 F L 78 15 BP BP BP Pulse Ox Pulse Ox 07/22/20 12:11 96/68 98/67 96 07/22/20 11:30 99/63 96 07/22/20 10:47 100/67 07/22/20 07:53 93/59 L 96 Weight Weight 139 lb 11.2 oz I&O: 07/21/20 07/22/20 07/23/20 06:59 06:59 06:59 Intake Total 641 Output Total 200 300 Balance 441 -300 Result Diagrams: 07/22/20 04:29 07/22/20 04:29 Additional Labs: Accuchecks 07/22/20 07/21/20 07/21/20 11:05 22:55 17:13 POC Glucose 243 H 288 H 298 H Hospitalist ROS - Review of Systems Constitutional: denies: fever, chills Respiratory: denies: cough, shortness of breath Cardiovascular: denies: chest pain, palpitations Gastrointestinal: denies: nausea, vomiting Genitourinary: denies: dysuria Neurological: reports: weakness, numbness, incoordination, other. denies: change in speech (decreased sensation to touch of left upper and lower extremity.) - Medication Medications: Active Medications Generic Name Dose Route Start Last Admin Trade Name Freq PRN Reason Stop Dose Admin Aspirin 81 mg 07/22/20 09:00 07/22/20 08:49 Ecotrin PO 81 mg DAILY MAX Administration Insulin Glargine 40 units/ 0.4 mls @ 0 mls/hr 07/22/20 09:00 07/22/20 08:49 Miscellaneous Medication SC 0.4 mls BID MAX Administration Sodium Chloride 1,000 mls @ 75 mls/hr 07/22/20 00:30 07/22/20 01:51 Normal Saline 0.9% IV 1,000 mls .[id number] MAX Administration Ibuprofen 600 mg 07/21/20 23:43 07/22/20 00:09 Motrin PO 600 mg Q6H PRN Administration Pain Insulin Human Lispro 0 units 07/21/20 22:07 07/22/20 12:04 Humalog SC 4 unit .MODERATE SLIDING SC PRN Administration Moderate Correctional Scale Pantoprazole Sodium 40 mg 07/22/20 09:00 07/22/20 08:49 Protonix PO 40 mg DAILY MAX Administration Sodium Chloride 10 ml 07/21/20 22:07 07/22/20 01:52 Flush - Normal Saline IVF 10 ml PRN PRN Administration Saline Flush - Exam General Appearance: awake alert Eye: PERRL ENT: normocephalic atraumatic Heart: RRR, no murmur Respiratory: CTAB, no wheezes Gastrointestinal: soft, non-tender Extremities: no cyanosis Neurological: cranial nerve grossly intact, hemiplegia (decreased sensation to touch of left upper and lower extremity. left pronator drift). negative: speech deficit, vision deficit Musculoskeletal: normal tone, no muscle wasting Psychiatric: normal affect, normal behavior, A&O x 3 Hosp A/P (1) Stroke Code(s): I63.9 - CEREBRAL INFARCTION, UNSPECIFIED Status: Suspected (2) Diabetes mellitus, type 2 Status: Chronic Qualifiers: Diabetes mellitus care home insulin use: without tank terminal gauger use (3) GERD (gastroesophageal reflux disease) Code(s): K21.9 - GASTRO-ESOPHAGEAL REFLUX DISEASE WITHOUT ESOPHAGITIS Status: Chronic (4) Hyperlipidemia Code(s): E78.5 - HYPERLIPIDEMIA, UNSPECIFIED Status: Chronic (5) Diabetes Code(s): E11.9 - TYPE 2 DIABETES MELLITUS WITHOUT COMPLICATIONS Status: Chronic (6) Hyperlipemia Code(s): E78.5 - HYPERLIPIDEMIA, UNSPECIFIED Status: Chronic - Plan MRI without acute infarct Echo- wnl, EF 55-60%, no thrombus seen Carotid doppler- no significant stenosis Neurology consulted ASA and high intensity statin PT/OT f/u lipid panel, A1c, and TSH
[2020-07-22 15:45] LABS: Hemoglobin A1c 12.5 % (4.0-6.0)
[2020-07-22] MEDS ORDERED: Atorvastatin Calcium 40 MG TAB PO SCH ×2 (21:00)
[2020-07-23 06:08] LABS: #Eosinphils 0.1 thou/uL (0.0-0.7); #Lymphocytes 2.8 thou/uL (1.20-3.40); #Monocytes 0.6 thou/uL (0.11-0.59); %Basophils 0.5 % (0.0-1.0); %Lymphocytes 42.5 % (21.0-51.0); %Monocytes 9.4 % (0.0-10.0); %Neutrophils 45.6 % (42.0-75.0); Hemoglobin 13.3 g/dL (12.0-16.0); Mean Corpuscular HGB CONC 33.7 g/dL (32.0-36.0); Mean Corpuscular Hemoglobin 30.8 pg (27.0-31.0); Mean Corpuscular Volume 91.3 fL (78.0-98.0); Platelet Count 198 thou/uL (130-400); RBC Distribution Width 12.2 % (11.5-14.5); White Blood Cell (WBC) Count 6.6 thou/uL (4.8-10.8)
[2020-07-23] MEDS: Sodium Chloride 0.9% 1,000 ML IV SCH (06:45)
[2020-07-23 06:53] LABS: Anion Gap 11 mmol/L (10-20); BUN (Urea Nitrogen) 9 mg/dL (7.0-18.7); Calc. Creatinine Clearance 130 mL/min (70-130); Calcium 7.7 mg/dL (7.8-10.44); Carbon Dioxide 21 mmol/L (22-29); Chloride 109 mmol/L (98-107); Estimated GFR-MDRD Greater than 90; Glucose 80 mg/dL (70-105); Potassium 3.2 mmol/L (3.5-5.1); Sodium 138 mmol/L (136-145)
[2020-07-23] MEDS: Aspirin 81 mg Enteric Coated Tablet PO SCH (08:10)
[2020-07-23] MEDS: Pantoprazole 40 MG GRANULES PACKET PO SCH (08:10)
[2020-07-23] MEDS ORDERED: Aspirin 81 mg Enteric Coated Tablet ONE (08:10)
[2020-07-23] MEDS: Insulin Glargine 40 UNITS in Pre-Filled Syringe 1 EACH SC SCH (10:16)
[2020-07-23] MEDS: HumaLOG 300 UNITS/3 ML VIAL SC PRN (11:15)
[2020-07-23 12:03] VITALS: TEMP 97.7
--- NOTE | 2020-07-23 13:21 | PDOC.NEUPN ---
- Subjective Encounter Date: 07/23/20 Subjective: Patient feels better. Neurological deficits improving. - Objective Vital Signs & Weight: Vital Signs (12 hours) Temp Pulse Resp BP Pulse Ox 07/23/20 11:35 97.7 F 68 18 106/72 95 07/23/20 07:41 97.8 F 71 16 96/67 95 07/23/20 02:11 97.9 F 68 18 101/60 96 Weight Weight 142 lb 3.2 oz I&O: 07/22/20 07/23/20 07/24/20 06:59 06:59 06:59 Intake Total 641 3515 Output Total 200 300 Balance 441 3215 Result Diagrams: 07/23/20 03:35 07/23/20 03:30 Additional Labs: Accuchecks 07/23/20 07/23/20 07/22/20 10:32 07:15 20:35 POC Glucose 201 H 86 169 H 07/22/20 17:23 POC Glucose 124 H Radiology Reviewed by me: Yes EKG Reviewed by me: Yes ROS - Review of Systems Constitutional: denies: fever, chills, sweats, weakness, malaise, other Eyes: denies: pain, vision change, conjunctivae inflammation, eyelid inflammation, redness, other ENT: denies: ear pain, ear discharge, nose pain, nose discharge, nose congestion, mouth pain, mouth swelling, throat pain, throat swelling, other Respiratory: denies: cough, dry, shortness of breath, hemoptysis, SOB with excertion, pleuritic pain, sputum, wheezing, other Cardiovascular: denies: no pertinent history, AFIB, CAD, CHF, HTN, OR, Syncope, Hyperlipidemia, Mitral valve stenosis, Aortic stenosis, Valve insufficiency, Pulmonary hypertension, Other Gastrointestinal: denies: nausea, vomiting, abdominal pain, diarrhea, constipation, melena, hematochezia, other Genitourinary: denies: dysuria, frequency, incontinence, hematuria, retention, other Musculoskeletal: denies: neck pain, shoulder pain, arm pain, back pain, hand pain, leg pain, foot pain, other Skin: denies: rash, lesions, lisbeth, bruising, other Neurological: reports: weakness, numbness, incoordination. denies: change in speech, confusion, seizures, other - Medication Medications: Active Medications Generic Name Dose Route Start Last Admin Trade Name Freq PRN Reason Stop Dose Admin Aspirin 81 mg 07/22/20 09:00 07/23/20 08:10 Ecotrin PO Not Given DAILY [facility] Atorvastatin Calcium 80 mg 07/22/20 21:00 07/22/20 20:25 Lipitor PO 80 mg HS MAX Administration Insulin Glargine 40 units/ 0.4 mls @ 0 mls/hr 07/22/20 09:00 07/23/20 10:16 Miscellaneous Medication SC Not Given BID MAX Sodium Chloride 1,000 mls @ 75 mls/hr 07/22/20 00:30 07/23/20 06:45 Normal Saline 0.9% IV Not Given .[id number] MAX Ibuprofen 600 mg 07/21/20 23:43 07/22/20 00:09 Motrin PO 600 mg Q6H PRN Administration Pain Insulin Human Lispro 0 units 07/21/20 22:07 07/23/20 11:15 Humalog SC 4 unit .MODERATE SLIDING SC PRN Administration Moderate Correctional Scale Pantoprazole Sodium 40 mg 07/22/20 09:00 07/23/20 08:10 Protonix PO Not Given DAILY [facility] Sodium Chloride 10 ml 07/21/20 22:07 07/22/20 01:52 Flush - Normal Saline IVF 10 ml PRN PRN Administration Saline Flush - Exam General Appearance: awake alert Eye: PERRL ENT: normocephalic atraumatic Neck: supple Respiratory: CTAB Cardiovascular: RRR, no murmur Gastrointestinal: soft, non-tender Extremities: no cyanosis, no clubbing Skin: normal turgor, no lesions Neurological: no new deficit Musculoskeletal: normal tone, no muscle wasting PSYCH: normal affect, normal behavior, A&O x 3, oriented to person, oriented to place, oriented to time Results - Labs Result Diagrams: 07/23/20 03:35 07/23/20 03:30 Lab results: WBC 6.6 thou/uL (4.8-10.8) 07/23/20 03:35 Hgb 13.3 g/dL (12.0-16.0) 07/23/20 03:35 Hct 39.3 % (36.0-47.0) 07/23/20 03:35 MCV 91.3 fL (78.0-98.0) 07/23/20 03:35 Plt Count 198 thou/uL (130-400) 07/23/20 03:35 Neutrophils % 45.6 % (42.0-75.0) 07/23/20 03:35 Sodium 138 mmol/L (136-145) 07/23/20 03:30 Potassium 3.2 mmol/L (3.5-5.1) L 07/23/20 03:30 Chloride 109 mmol/L (98-107) H 07/23/20 03:30 Carbon Dioxide 21 mmol/L (22-29) L 07/23/20 03:30 BUN 9 mg/dL (7.0-18.7) 07/23/20 03:30 Creatinine 0.55 mg/dL (0.6-1.1) L 07/23/20 03:30 Glucose 80 mg/dL (70-105) 07/23/20 03:30 Calcium 7.7 mg/dL (7.8-10.44) L 07/23/20 03:30 Total Bilirubin 1.0 mg/dL (0.2-1.2) 07/21/20 17:02 AST 12 U/L (5-34) 07/21/20 17:02 ALT 17 U/L (8-55) 07/21/20 17:02 Alkaline Phosphatase 99 U/L (40-110) 07/21/20 17:02 Troponin I Less than 0.010 ng/mL (< 0.028) 07/21/20 23:05 Serum Total Protein 6.9 g/dL (6.0-8.3) 07/21/20 17:02 Albumin 3.9 g/dL (3.5-5.0) 07/21/20 17:02 Lipase 11 U/L (8-78) 07/21/20 17:02 - Radiology Interpretation MRI - head Additional Comment: No acute intracranial process PN A/P (1) TIA (transient ischemic attack) Code(s): G45.9 - TRANSIENT CEREBRAL ISCHEMIC ATTACK, UNSPECIFIED Status: Acute (2) Diabetes mellitus, type 2 Status: Chronic Qualifiers: Diabetes mellitus terminal carman insulin use: without half-way use (3) GERD (gastroesophageal reflux disease) Code(s): K21.9 - GASTRO-ESOPHAGEAL REFLUX DISEASE WITHOUT ESOPHAGITIS Status: Chronic (4) Hyperlipidemia Code(s): E78.5 - HYPERLIPIDEMIA, UNSPECIFIED Status: Chronic (5) Diabetes Code(s): E11.9 - TYPE 2 DIABETES MELLITUS WITHOUT COMPLICATIONS Status: Chronic (6) Hyperlipemia Code(s): E78.5 - HYPERLIPIDEMIA, UNSPECIFIED Status: Chronic - Plan Daily Plan: PT/OT, speech therapy 44 year old presented with focal left neurological deficits which are now improving. MRI brain reviewed and was without acute infarct 2 D Echo is wnl, EF 55-60%, no thrombus or PFO seen Carotid doppler showed no no significant stenosis Neurochecks every 4 hours. Strict control of BP and BG. Continue home medications. Continue ASA and high intensity statin for secondary stroke prevention. PT/OT Continue medical management per primary team. Case discussed with the nursing staff and the patient.
[2020-07-23 16:34] VITALS: BP 106/73
--- NOTE | 2020-07-23 20:59 | DIS ---
DATE OF ADMISSION: 07/21/2020 DATE OF DISCHARGE: 07/23/2020 ADMITTING DIAGNOSIS: Transient ischemic attack. HOSPITAL COURSE: The patient is a 44-year-old female with past medical history of type 2 diabetes, high cholesterol, and depression. She reports waking up on morning of presentation to the emergency department with left arm and leg tingling and numbness. She was able to work throughout the day, but began to experience progressive weakness throughout the day. She decided to present to the emergency department. In the emergency department, a head CT was obtained which was negative for any acute intracranial processes. She was admitted for CVA evaluation. Carotid doppler was also obtained which was negative for any stenosis and brain MRI was obtained which was negative for any acute infarct. Transthoracic echo was within normal limits with an ejection fraction of 55% to 60%. Patient worked with Physical Therapy and noted improvement in her strength and coordination throughout her stay. On day of discharge, she was ambulatory with a walker. Neurology was consulted for concerns of a CVA which was ruled out. The patient was diagnosed with a TIA. Recommendations of 81 mg of daily aspirin as well as an atorvastatin 80 mg daily for further stroke prevention. PHYSICAL EXAMINATION: GENERAL: Patient was resting comfortably in bed. HEENT: Pupils were equal and reactive bilaterally. CARDIAC: Regular rate and rhythm, no murmurs. CHEST: Clear to auscultation bilaterally. ABDOMEN: Soft, nontender, and nondistended. NEUROLOGIC: Patient had a 4/5 strength on her left upper and lower extremity with a decreased materials intern strength on the left side. She was able to ambulate with a walker. Patient was stable for discharge and discharged home Diet: diabetic diet. Activity as tolerated Medications: aspirin 81 mg daily atorvastatin 80 mg daily. Tresiba increased to 50 units b.i.d. She was instructed to follow up with her PCP at the scheduled appointment. She was discharged home in stable condition. return precautions were given. Total time in discharging of this patient was greater than 30 minutes. Job ID: [id number] [facility]
--- NOTE | 2020-07-26 11:31 | EKG ---
Test Reason : Blood Pressure : / mmHG Vent. Rate : 101 BPM Atrial Rate : 101 BPM P-R Int : 166 ms QRS Dur : 076 ms QT Int : 356 ms P-R-T Axes : 052 -31 003 degrees QTc Int : 461 ms Sinus tachycardia Left axis deviation Inferior infarct , age undetermined Anterolateral infarct , age undetermined Abnormal ECG Biatrial enlargement Confirmed by ANNEMARIE CARPIO, SUNDAR Wilkerson ([id number]), food expeditor BRADLEY LIEBERMAN ([id number]) on 07/26/2020 11:31:07 AM Referred By: Confirmed By:SUNDAR SHARPE MD
== END 2020-07-23 17:50 | disposition home or self-care (01) ==
LOC: ERS 16:40 → 2SW 18:43 → INTOOBSV 18:43
PROVIDERS: ADMIT Student in an Organized Health Care Education/Training Program; ATTEND Student in an Organized Health Care Education/Training Program
DX: G45.9 Transient cerebral ischemic attack, unspecified (principal); E11.9 Type 2 diabetes mellitus without complications; E78.5 Hyperlipidemia, unspecified; F32.9 Major depressive disorder, single episode, unspecified; K21.9 Gastro-esophageal reflux disease without esophagitis; E87.1 Hypo-osmolality and hyponatremia; Z79.84 Long term (current) use of oral hypoglycemic drugs; Z79.899 Other long term (current) drug therapy; Z88.0 Allergy status to penicillin; Z20.828 Contact with and (suspected) exposure to other viral communicable diseases
CPT/HCPCS: 36415; 36416; 70450; 70551; 71045; 71275; 80048; 80053; 80061; 83036; 83690; 84443; 84484; 84703; 85025; 87635; 93005; 93306; 93880; 94760; 96360; 96361; 96372; G0378; J1650; J1815; U0003

== ENCOUNTER 2020-11-05 07:14 | Emergency (ER) | payer SELFPAY ==
[2020-11-05] MEDS ORDERED: Acetaminophen/Codeine 30-300mg Tablet ONE (08:06)
[2020-11-05 08:45] LABS: #Lymphocytes 1.6 thou/uL (1.20-3.40); #Monocytes 0.4 thou/uL (0.11-0.59); #Neutrophils 6.7 thou/uL (1.40-6.50); %Eosinophils 0.1 % (0.0-10.0); %Lymphocytes 18.6 % (21.0-51.0); %Monocytes 4.6 % (0.0-10.0); %Neutrophils 76.8 % (42.0-75.0); Hemoglobin 14.6 g/dL (12.0-16.0); Mean Corpuscular HGB CONC 33.1 g/dL (32.0-36.0); Mean Corpuscular Hemoglobin 28.8 pg (27.0-31.0); Mean Platelet Volume 8.5 fL (7.4-10.4); Platelet Count 215 thou/uL (130-400); RBC Distribution Width 11.2 % (11.5-14.5); Red Blood Cell (RBC) Count 5.08 mill/uL (4.20-5.40); White Blood Cell (WBC) Count 8.8 thou/uL (4.8-10.8)
[2020-11-05] MEDS ORDERED: Ketorolac Tromethamine 30 MG/ML VIAL ONE (08:55)
[2020-11-05] MEDS ORDERED: cefTRIAXone\\ROCEPHIN 2 GM VIAL ONE (08:55)
[2020-11-05] MEDS ORDERED: Azithromycin 500 MG VIAL ONE (08:55)
[2020-11-05 09:09] LABS: ALT (SGPT) 11 U/L (8-55); AST (SGOT) 19 U/L (5-34); Albumin 3.8 g/dL (3.5-5.0); Alkaline Phosphatase 110 U/L (40-110); Anion Gap 18 mmol/L (10-20); BUN (Urea Nitrogen) 11 mg/dL (7.0-18.7); Bilirubin, Total 0.6 mg/dL (0.2-1.2); Calc. Creatinine Clearance 0 mL/min (70-130); Calcium 8.9 mg/dL (7.8-10.44); Carbon Dioxide 24 mmol/L (22-29); Chloride 98 mmol/L (98-107); Globulin 4.3 g/dL (2.4-3.5); Glucose 282 mg/dL (70-105); Potassium 3.8 mmol/L (3.5-5.1); Protein, Total 8.1 g/dL (6.0-8.3); Sodium 136 mmol/L (136-145)
[2020-11-05 09:23] LABS: Bacteria/HPF None Seen HPF (None Seen); Bilirubin Negative (Negative); Blood, Urine Negative (Negative); Clarity Clear (Clear); Glucose, Urine (Dipstick) Greater than 1000 mg/dL (Negative); Ketone, Urine 100 mg/dL (Negative); Leukocyte Negative Leu/uL (Negative); Nitrite Negative (Negative); Protein, Urine (Dipstick) 100 mg/dL (Neg-Trace); RBC/HPF 0-3 HPF (0-3); Squamous Epithelial 0-3 HPF (0-3)
[2020-11-05 09:26] LABS: Specific Gravity, Urine 1.047 (1.002-1.036)
[2020-11-05] MEDS ORDERED: Ondansetron PF 4 MG/2 ML Vial ONE ×2 (09:29→10:37)
--- NOTE | 2020-11-05 10:30 | RAD ---
RADIOGRAPH CHEST 1 VIEW: Date: 11/05/2020. Time: 7:58 a.m. HISTORY: A 44-year-old COVID-19 positive female with fever, dyspnea, and chest pain. COMPARISON: 07/21/2020. FINDINGS: Inspiration is shallow. There has been interval change: mild patchy faint infiltrates are demonstrat ed at the right lower lung lower lung zone, and somewhat more prominent such infiltrates are present at the left mid and lower lung zones. Lung apices are relatively spared. No pneumothorax. IMPRESSION: Bilateral infiltrates, left greater than right: evidence for COVID-19 pneumonia. JN [] POS: JIN
== END 2020-11-05 12:05 | disposition home or self-care (01) ==
LOC: ERS 07:14
DX: U07.1 COVID-19 (principal); J12.89 Other viral pneumonia; E78.5 Hyperlipidemia, unspecified; E11.9 Type 2 diabetes mellitus without complications; Z79.84 Long term (current) use of oral hypoglycemic drugs
CPT/HCPCS: 71045; 80053; 81003; 81015; 85025; 96365; 96367; 96375; 96376; J0456; J0696; J1885; J2405

== ENCOUNTER 2021-05-12 21:40 | Emergency (ER) | payer BC | END 2021-05-12 22:56 | disposition left against medical advice (07) | LOC: ERS 21:40 | DX: Z53.21 Procedure and treatment not carried out due to patient leaving prior to being seen by health care provider (principal) ==

== ENCOUNTER 2021-09-30 09:22 | Outpatient (CLI) | payer BC ==
[2021-09-30 10:21] VITALS: BMI 26.9
[2021-09-30 17:22] LABS: SARS-CoV-2 PCR by NAA Not Detected (NotDetected)
== END 2021-09-30 09:23 | disposition home or self-care (01) ==
LOC: LABBT 09:22
PROVIDERS: ATTEND Thoracic Surgery (Cardiothoracic Vascular Surgery)
DX: Z01.818 Encounter for other preprocedural examination (principal); I25.10 Atherosclerotic heart disease of native coronary artery without angina pectoris; Z20.822 Contact with and (suspected) exposure to COVID-19
CPT/HCPCS: 71046; 93005; 93010; U0003; U0005

== ENCOUNTER 2021-10-05 06:04 | Inpatient (IN) | payer BC ==
[2021-09-30 11:36] LABS: Hemoglobin 15.4 g/dL (12.0-15.5); Mean Corpuscular HGB CONC 35.1 g/dL (32.0-36.0); Mean Corpuscular Hemoglobin 30.6 pg (27.0-33.0); Mean Corpuscular Volume 87.1 fl (81.6-98.3); Mean Platelet Volume 11.1 fl (7.4-10.4); Platelet Count 255 10x3/uL (150-450); RBC Distribution Width 11.9 % (11.5-14.5); Red Blood Cell (RBC) Count 5.04 10x6/uL (3.90-5.03); White Blood Cell (WBC) Count 6.4 10x3/uL (3.5-10.5)
[2021-09-30 11:57] LABS: Anion Gap 16 mmol/L (10-20); BUN (Urea Nitrogen) 13 mg/dL (7.0-18.7); Calc. Creatinine Clearance 88 mL/min (70-130); Calcium 9.5 mg/dL (7.8-10.44); Carbon Dioxide 23 mmol/L (22-29); Chloride 100 mmol/L (98-107); Glucose 387 mg/dL (70-105); Potassium 4.6 mmol/L (3.5-5.1); Sodium 134 mmol/L (136-145)
[2021-10-05] MEDS ORDERED: Bupivacaine PF 0.5% 30 ML VIAL ONE (06:30)
[2021-10-05] MEDS ORDERED: EPINEPHrine 1 MG/ML AMP ONE (06:30)
[2021-10-05] MEDS ORDERED: Albumin 5% 500 ML ONE (06:30)
[2021-10-05] MEDS ORDERED: Dexamethasone 4 mg/ml Vial ONE (06:30)
[2021-10-05] MEDS ORDERED: Fentanyl 250 MCG/5 ML VIAL ONE ×2 (06:35→08:57)
[2021-10-05] MEDS ORDERED: Midazolam HCl 5 mg/5 ml Vial ONE ×2 (06:35→08:58)
[2021-10-05] MEDS ORDERED: Heparin 10,000 UNITS/1 ML VIAL 30,000 UNITS in Sodium Chloride 0.9% 1,000 ML FS SCH (07:00)
[2021-10-05] MEDS ORDERED: Midazolam HCl 2 mg/2 ml Vial ONE (07:06)
[2021-10-05] MEDS ORDERED: Insulin Regular 300 UNITS/3 ML VIAL ONE (07:15)
[2021-10-05] MEDS ORDERED: Clindamycin/D5W 900 mg/50 ml Premix Bag ONE (07:45)
[2021-10-05] MEDS ORDERED: Vancomycin HCl 1.5 GM in Sodium Chloride 0.9% 250 ML 300 ML IVPB SCH (08:00)
[2021-10-05] MEDS ORDERED: Clindamycin/D5W 900 MG in Premix Bag 1 BAG IVPB SCH (08:00)
[2021-10-05] MEDS ORDERED: Calcium Chloride 1 GM/10 ML Abboject SYRINGE ONE (08:07)
[2021-10-05] MEDS ORDERED: Potassium Chloride 60 MEQ/30 ML VIAL ONE (08:07)
[2021-10-05] MEDS ORDERED: Lidocaine 2% PF 100 mg/5 ml Syringe ONE (08:07)
[2021-10-05] MEDS ORDERED: Vecuronium 10 MG VIAL ONE (08:07)
[2021-10-05] MEDS ORDERED: Thrombin 5000 UNITS/5 ML VIAL ONE (08:07)
[2021-10-05] MEDS ORDERED: PROPOFOL 200 MG/20 ML VIAL ONE (08:07)
[2021-10-05] MEDS ORDERED: Heparin 30,000 units/30 ml VIAL ONE (08:07)
[2021-10-05] MEDS ORDERED: Heparin 5,000 UNITS/ML VIAL ONE (08:07)
[2021-10-05] MEDS ORDERED: Magnesium Sulfate 1 GM/2 ML VIAL ONE (08:07)
[2021-10-05] MEDS ORDERED: Protamine Sulfate 250 MG/25 ML VIAL ONE (08:07)
[2021-10-05] MEDS ORDERED: Sodium Bicarb 50 MEQ/50 ML Abboject 8.4% SYRINGE ONE (08:07)
[2021-10-05] MEDS ORDERED: Cardioplegic Soln 1,000 ML BAG ONE (08:07)
[2021-10-05] MEDS ORDERED: Mannitol 12.5 GM/50 ML ONE (08:07)
[2021-10-05] MEDS ORDERED: Papaverine 60 MG/2 ML VIAL ONE (08:07)
[2021-10-05] MEDS ORDERED: Ondansetron PF 4 MG/2 ML Vial ONE (08:07)
[2021-10-05] MEDS ORDERED: Labetalol HCl 100 MG/20 ML VIAL ONE (08:07)
[2021-10-05] MEDS ORDERED: Aminocaproic Acid 5 GM/20 ML VIAL ONE (08:07)
[2021-10-05] MEDS ORDERED: Morphine 2 MG/ML VIAL SLOW IVP PRN (11:22)
[2021-10-05] MEDS ORDERED: Mag-Al 1200 mg/1200 mg/30 ML UDCUP PO PRN (11:22)
[2021-10-05] MEDS ORDERED: Bisacodyl 10 MG SUPP PR PRN (11:22)
[2021-10-05] MEDS ORDERED: niCARdipine 25 MG in Sodium Chloride 0.9% 250 ML 250 ML IVPB PRN (11:22)
[2021-10-05] MEDS ORDERED: Promethazine HCl 25 MG/ML VIAL IM PRN (11:22)
[2021-10-05] MEDS ORDERED: Guaifenesin DM 100-10/5 ML UDCUP PO PRN (11:22)
[2021-10-05] MEDS ORDERED: Post-Op Insulin Drip Protocol IVPB ONE (11:22)
[2021-10-05] MEDS ORDERED: Norepinephrine 8 MG/0.9% NS 250 ML IVPB PRN (11:22)
[2021-10-05] MEDS ORDERED: Bisacodyl 5 MG TAB PO PRN (11:22)
[2021-10-05] MEDS ORDERED: Nitroglycerin 50 MG/250 ML BOT 250 ML IVPB PRN (11:22)
[2021-10-05] MEDS ORDERED: Magnesium 2 GM/50 ML 2 GM in Premix Bag 1 BAG IVPB SCH (11:30)
[2021-10-05] MEDS ORDERED: D5 1/2 NS w/20 mEq KCL 1,000 ML IV SCH (11:30)
[2021-10-05] MEDS ORDERED: Dextrose 50% Abboject 50 ML SYRINGE ONE (11:32)
[2021-10-05] MEDS ORDERED: Ketorolac Tromethamine 30 MG/ML VIAL ONE (11:32)
[2021-10-05 11:38] VITALS: BMI 28.5
[2021-10-05 11:39] LABS: #Eosinphils 0.1 thou/uL (0.0-0.7); #Lymphocytes 1.9 thou/uL (1.20-3.40); #Monocytes 0.2 thou/uL (0.11-0.59); #Neutrophils 8.1 thou/uL (1.40-6.50); %Eosinophils 0.6 % (0.0-10.0); %Lymphocytes 18.5 % (21.0-51.0); %Monocytes 2.2 % (0.0-10.0); %Neutrophils 78.7 % (42.0-75.0); Hemoglobin 11.4 g/dL (12.0-16.0); Mean Corpuscular HGB CONC 35.8 g/dL (32.0-36.0); Mean Corpuscular Volume 89.3 fL (78.0-98.0); Mean Platelet Volume 8.7 fL (7.4-10.4); Platelet Count 151 thou/uL (130-400); RBC Distribution Width 11.2 % (11.5-14.5); Red Blood Cell (RBC) Count 3.57 mill/uL (4.20-5.40); White Blood Cell (WBC) Count 10.3 thou/uL (4.8-10.8)
[2021-10-05 11:47] LABS: INR-International Normal Ratio 1.2; PTT 30.2 sec (22.9-36.1); Prothrombin Time 15.3 sec (12.0-14.7)
[2021-10-05 12:02] LABS: Anion Gap 9 mmol/L (10-20); BUN (Urea Nitrogen) 13 mg/dL (7.0-18.7); Calc. Creatinine Clearance 114 mL/min (70-130); Carbon Dioxide 22 mmol/L (22-29); Chloride 111 mmol/L (98-107); Glucose 162 mg/dL (70-105); Potassium 3.1 mmol/L (3.5-5.1); Sodium 139 mmol/L (136-145)
[2021-10-05] MEDS: Ketorolac Tromethamine 30 MG/ML VIAL IVP SCH ×2 (12:18→17:04)
[2021-10-05] MEDS ORDERED: Lantus 1000 UNITS/10 ML VIAL SC PRN (12:30)
[2021-10-05] MEDS ORDERED: Insulin Regular 300 UNITS/3 ML VIAL SC PRN (12:30)
[2021-10-05] MEDS: Fentanyl 100 MCG/2 ML VIAL SLOW IVP PRN ×4 (12:30→23:17)
[2021-10-05] MEDS ORDERED: Dextrose 5% in Water 1,000 ML IV PRN (12:30)
[2021-10-05] MEDS ORDERED: Dextrose 50% Abboject 50 ML SYRINGE SLOW IVP PRN (12:30)
[2021-10-05] MEDS: Potassium Chloride 20 MEQ/100 ML PREMIX BAG IVPB PRN ×2 (12:38→17:25)
[2021-10-05] MEDS: Clindamycin/D5W 900 MG in Premix Bag 1 BAG IVPB SCH ×2 (13:03→20:35)
[2021-10-05] MEDS: HUMULIN R 100 UNITS in Sodium Chloride 0.9% 100 ML IVPB SCH (13:43)
[2021-10-05 17:00] LABS: Hemoglobin 12.1 g/dL (12.0-16.0)
[2021-10-05 17:16] LABS: Potassium 3.3 mmol/L (3.5-5.1)
[2021-10-05] MEDS: Famotidine/PF 20 mg/2ml Vial SLOW IVP SCH (20:35)
[2021-10-05] MEDS: Atorvastatin Calcium 40 MG TAB PO SCH (20:35)
[2021-10-05] MEDS: Vancomycin HCl 1.5 GM in Sodium Chloride 0.9% 250 ML 300 ML IVPB SCH (23:18)
[2021-10-06] MEDS: Ketorolac Tromethamine 30 MG/ML VIAL IVP SCH ×4 (00:14→18:24)
[2021-10-06] MEDS: Clindamycin/D5W 900 MG in Premix Bag 1 BAG IVPB SCH ×2 (02:02→07:39)
[2021-10-06] MEDS: HUMULIN R 100 UNITS in Sodium Chloride 0.9% 100 ML IVPB SCH (02:03)
[2021-10-06] MEDS: Acetaminophen 325 MG TAB PO PRN ×2 (02:25→07:40)
[2021-10-06] MEDS: Fentanyl 100 MCG/2 ML VIAL SLOW IVP PRN ×2 (02:26→13:37)
[2021-10-06 04:46] LABS: #Lymphocytes 1.5 thou/uL (1.20-3.40); #Monocytes 0.8 thou/uL (0.11-0.59); %Basophils 0.2 % (0.0-1.0); %Eosinophils 0.1 % (0.0-10.0); %Lymphocytes 10.9 % (21.0-51.0); %Neutrophils 82.8 % (42.0-75.0); Hemoglobin 11.1 g/dL (12.0-16.0); Mean Corpuscular HGB CONC 34.8 g/dL (32.0-36.0); Mean Platelet Volume 8.7 fL (7.4-10.4); Platelet Count 163 thou/uL (130-400); RBC Distribution Width 11.6 % (11.5-14.5); Red Blood Cell (RBC) Count 3.46 mill/uL (4.20-5.40); White Blood Cell (WBC) Count 13.2 thou/uL (4.8-10.8)
[2021-10-06] MEDS: Hetastarch 6% 500 ML 500 ML IVPB PRN ×2 (04:48→10:26)
[2021-10-06 04:57] LABS: Anion Gap 11 mmol/L (10-20); BUN (Urea Nitrogen) 10 mg/dL (7.0-18.7); Calc. Creatinine Clearance 118 mL/min (70-130); Calcium 7.8 mg/dL (7.8-10.44); Carbon Dioxide 18 mmol/L (22-29); Chloride 113 mmol/L (98-107); Glucose 104 mg/dL (70-105); Sodium 138 mmol/L (136-145)
[2021-10-06] MEDS: traMADol HCl 50 MG TAB PO PRN ×2 (05:37→20:31)
[2021-10-06] MEDS ORDERED: Bisacodyl 5 MG TAB PO PRN (07:36)
[2021-10-06] MEDS ORDERED: Bisacodyl 10 MG SUPP PR PRN (07:36)
[2021-10-06] MEDS ORDERED: Mag-Al 1200 mg/1200 mg/30 ML UDCUP PO PRN (07:36)
[2021-10-06] MEDS ORDERED: Mineral Oil ENEMA PR PRN (07:36)
[2021-10-06] MEDS ORDERED: Guaifenesin DM 100-10/5 ML UDCUP PO PRN (07:36)
[2021-10-06] MEDS ORDERED: Zolpidem Tartrate 5 MG TAB PO PRN (07:36)
[2021-10-06] MEDS ORDERED: Nitroglycerin 0.4 MG TAB (25 Tab Bottle) SL PRN (07:36)
[2021-10-06] MEDS ORDERED: Milk Of Magnesia 30 ML UDCUP PO PRN (07:36)
[2021-10-06] MEDS: Famotidine/PF 20 mg/2ml Vial SLOW IVP SCH (07:40)
[2021-10-06] MEDS: Magnesium 2 GM/50 ML 2 GM in Premix Bag 1 BAG IVPB SCH (07:40)
[2021-10-06] MEDS: Vancomycin HCl 1.5 GM in Sodium Chloride 0.9% 250 ML 300 ML IVPB SCH (07:41)
[2021-10-06] MEDS: Aspirin 325 MG TAB PO SCH (07:41)
[2021-10-06] MEDS: Potassium Chloride 20 MEQ/100 ML PREMIX BAG IVPB PRN (08:08)
[2021-10-06] MEDS: Famotidine 20 MG TAB PO SCH ×2 (10:36→20:31)
[2021-10-06] MEDS: Insulin Regular 300 UNITS/3 ML VIAL SC PRN ×2 (11:18→16:15)
[2021-10-06] MEDS: Ondansetron PF 4 MG/2 ML Vial IVP PRN (13:37)
[2021-10-06] MEDS: Atorvastatin Calcium 40 MG TAB PO SCH (20:31)
[2021-10-07] MEDS: Fentanyl 100 MCG/2 ML VIAL SLOW IVP PRN ×2 (00:41→09:33)
[2021-10-07] MEDS: Ketorolac Tromethamine 30 MG/ML VIAL IVP SCH ×4 (00:42→17:30)
[2021-10-07] MEDS: Insulin Regular 300 UNITS/3 ML VIAL SC PRN ×2 (06:13→11:11)
[2021-10-07] MEDS: Aspirin 325 MG TAB PO SCH (09:21)
[2021-10-07] MEDS: Ondansetron PF 4 MG/2 ML Vial IVP PRN (09:21)
[2021-10-07] MEDS: Famotidine 20 MG TAB PO SCH ×2 (09:21→20:41)
[2021-10-07] MEDS: Magnesium 2 GM/50 ML 2 GM in Premix Bag 1 BAG IVPB SCH (09:21)
[2021-10-07] MEDS ORDERED: Furosemide 40 MG/4 ML VIAL SLOW IVP SCH (13:30)
[2021-10-07] MEDS: traMADol HCl 50 MG TAB PO PRN (20:41)
[2021-10-07] MEDS: Atorvastatin Calcium 40 MG TAB PO SCH (20:41)
[2021-10-08] MEDS: Ketorolac Tromethamine 30 MG/ML VIAL IVP SCH ×3 (01:15→13:01)
[2021-10-08] MEDS: Aspirin 325 MG TAB PO SCH (07:50)
[2021-10-08] MEDS: Furosemide 40 MG TAB PO SCH (07:51)
[2021-10-08] MEDS: Famotidine 20 MG TAB PO SCH ×2 (07:51→21:22)
[2021-10-08] MEDS: Potassium Chloride 10 MEQ TAB PO SCH (07:51)
[2021-10-08] MEDS: traMADol HCl 50 MG TAB PO PRN ×3 (08:07→21:22)
[2021-10-08] MEDS: Metoprolol Tartrate 25 MG TAB PO SCH ×2 (08:12→21:21)
[2021-10-08] MEDS: Insulin Regular 300 UNITS/3 ML VIAL SC PRN ×2 (17:34→21:19)
[2021-10-08] MEDS: Atorvastatin Calcium 40 MG TAB PO SCH (21:21)
[2021-10-09] MEDS: Acetaminophen 325 MG TAB PO PRN ×2 (04:42→17:42)
[2021-10-09] MEDS: Furosemide 40 MG TAB PO SCH (06:22)
[2021-10-09] MEDS: Famotidine 20 MG TAB PO SCH ×2 (09:04→20:56)
[2021-10-09] MEDS: Aspirin 325 MG TAB PO SCH (09:04)
[2021-10-09] MEDS: Lisinopril 2.5 MG TAB PO SCH (09:04)
[2021-10-09] MEDS: Potassium Chloride 10 MEQ TAB PO SCH (09:04)
[2021-10-09] MEDS: Metoprolol Tartrate 25 MG TAB PO SCH ×2 (09:05→20:56)
[2021-10-09] MEDS: Insulin Regular 300 UNITS/3 ML VIAL SC PRN ×3 (12:41→20:56)
[2021-10-09] MEDS: Atorvastatin Calcium 40 MG TAB PO SCH (20:55)
[2021-10-09] MEDS: traMADol HCl 50 MG TAB PO PRN (23:15)
[2021-10-10] MEDS: diphenhydrAMINE 25 MG CAP PO PRN ×2 (01:33→21:16)
[2021-10-10] MEDS: Furosemide 40 MG TAB PO SCH (06:23)
[2021-10-10] MEDS: Insulin Regular 300 UNITS/3 ML VIAL SC PRN ×4 (06:23→21:19)
[2021-10-10] MEDS: Famotidine 20 MG TAB PO SCH ×2 (07:53→21:17)
[2021-10-10] MEDS: Metoprolol Tartrate 25 MG TAB PO SCH ×2 (07:53→21:16)
[2021-10-10] MEDS: Aspirin 325 MG TAB PO SCH (07:53)
[2021-10-10] MEDS: Potassium Chloride 10 MEQ TAB PO SCH (07:53)
[2021-10-10] MEDS: Lisinopril 2.5 MG TAB PO SCH (07:53)
[2021-10-10] MEDS: Acetaminophen 325 MG TAB PO PRN ×2 (15:30→21:16)
[2021-10-10] MEDS: Atorvastatin Calcium 40 MG TAB PO SCH (21:17)
[2021-10-11] MEDS: Acetaminophen 325 MG TAB PO PRN (06:06)
[2021-10-11] MEDS: Insulin Regular 300 UNITS/3 ML VIAL SC PRN (06:07)
[2021-10-11] MEDS: Furosemide 40 MG TAB PO SCH (06:07)
[2021-10-11 07:22] VITALS: BP 118/62; TEMP 98.1
[2021-10-11] MEDS: Aspirin 325 MG TAB PO SCH (08:29)
[2021-10-11] MEDS: Lisinopril 2.5 MG TAB PO SCH (08:29)
[2021-10-11] MEDS: Potassium Chloride 10 MEQ TAB PO SCH (08:29)
[2021-10-11] MEDS: Metoprolol Tartrate 25 MG TAB PO SCH (08:29)
[2021-10-11] MEDS: Famotidine 20 MG TAB PO SCH (08:29)
== END 2021-10-11 10:55 | disposition home or self-care (01) | DRG 236 ==
LOC: SDC 06:04 → CCU 11:12 → 2NO 10-06 17:01
PROVIDERS: ADMIT Thoracic Surgery (Cardiothoracic Vascular Surgery); ATTEND Thoracic Surgery (Cardiothoracic Vascular Surgery)
PROC: 02100Z9 Bypass Coronary Artery, One Artery from Left Internal Mammary, Open Approach (ICD-10-PCS; principal; 2021-10-05)
PROC: 021009W Bypass Coronary Artery, One Artery from Aorta with Autologous Venous Tissue, Open Approach (ICD-10-PCS; 2021-10-05)
PROC: 06BQ0ZZ Excision of Left Saphenous Vein, Open Approach (ICD-10-PCS; 2021-10-05)
PROC: 5A1221Z Performance of Cardiac Output, Continuous (ICD-10-PCS; 2021-10-05)
DX: I25.10 Atherosclerotic heart disease of native coronary artery without angina pectoris (principal); E11.9 Type 2 diabetes mellitus without complications; E78.00 Pure hypercholesterolemia, unspecified; F32.A Depression, unspecified; E78.2 Mixed hyperlipidemia; F41.3 Other mixed anxiety disorders; I10 Essential (primary) hypertension; E78.5 Hyperlipidemia, unspecified; K21.9 Gastro-esophageal reflux disease without esophagitis; F41.9 Anxiety disorder, unspecified; Z98.51 Tubal ligation status; Z88.0 Allergy status to penicillin; Z86.73 Personal history of transient ischemic attack (TIA), and cerebral infarction without residual deficits
CPT/HCPCS: 36415; 36416; 36430; 71045; 80048; 85025; 85027; 85610; 85730; 86850; 86900; 86901; 93005; 93010; 93798; 94002; 94150; 97139; C1776; J0171; J1100; J1642; J1644; J1815; J1885; J1940; J2001; J2150; J2250; J2405; J2440; J2704; J2720; J3010; J3370; J3475; J3480; J3490; J7050; P9045; S0017; S0020; S0028

== ENCOUNTER 2022-06-06 09:22 | Emergency (ER) | payer BC ==
[2022-06-06 09:53] LABS: #Eosinphils 0.2 thou/uL (0.0-0.7); #Lymphocytes 2.5 thou/uL (1.20-3.40); #Monocytes 0.4 thou/uL (0.11-0.59); #Neutrophils 4.4 thou/uL (1.40-6.50); %Basophils 0.6 % (0.0-1.0); %Eosinophils 2.1 % (0.0-10.0); %Lymphocytes 32.7 % (21.0-51.0); %Monocytes 5.6 % (0.0-10.0); %Neutrophils 58.9 % (42.0-75.0); Hemoglobin 16.2 g/dL (12.0-16.0); Mean Corpuscular HGB CONC 34.7 g/dL (32.0-36.0); Mean Corpuscular Hemoglobin 30.8 pg (27.0-31.0); Mean Corpuscular Volume 88.7 fL (78.0-98.0); Mean Platelet Volume 8.8 fL (7.4-10.4); Platelet Count 219 thou/uL (130-400); RBC Distribution Width 12.2 % (11.5-14.5); Red Blood Cell (RBC) Count 5.25 mill/uL (4.20-5.40); White Blood Cell (WBC) Count 7.5 thou/uL (4.8-10.8)
[2022-06-06 10:04] LABS: Bilirubin Negative (Negative); Blood, Urine Negative (Negative); Clarity Clear (Clear); Glucose, Urine (Dipstick) Greater than 1000 mg/dL (Negative); Ketone, Urine Negative (Negative); Leukocyte Negative Leu/uL (Negative); Nitrite Negative (Negative); Protein, Urine (Dipstick) Negative (Neg-Trace); Specific Gravity, Urine 1.031 (1.002-1.036); Urobilinogen Normal mg/dL (Less than 2); pH, Urine 6.5 (5.0-9.0)
[2022-06-06 10:08] LABS: Pregnancy Test - Urine (BHCG) Negative (Negative); Pregu Control Background? CLEAR/WHITE (CLR/WHITE); Pregu Control Bar Appear? YES (CONTROL BAR); Specific Gravity 1.031 (1.002-1.036)
[2022-06-06 10:13] LABS: ALT (SGPT) 15 U/L (8-55); AST (SGOT) 16 U/L (5-34); Albumin 4.2 g/dL (3.5-5.0); Alkaline Phosphatase 134 U/L (40-110); Anion Gap 15 mmol/L (10-20); BUN (Urea Nitrogen) 16 mg/dL (7.0-18.7); Bilirubin, Total 0.5 mg/dL (0.2-1.2); Calc. Creatinine Clearance 0 mL/min (70-130); Calcium 9.2 mg/dL (7.8-10.44); Carbon Dioxide 23 mmol/L (22-29); Chloride 102 mmol/L (98-107); Estimated GFR 97; Globulin 3.7 g/dL (2.4-3.5); Glucose 323 mg/dL (70-105); Lipase 30 U/L (8-78); Potassium 4.5 mmol/L (3.5-5.1); Protein, Total 7.9 g/dL (6.0-8.3); Sodium 135 mmol/L (136-145)
[2022-06-06] MEDS ORDERED: Ketorolac Tromethamine 30 MG/ML VIAL ONE (10:33)
== END 2022-06-06 11:49 | disposition home or self-care (01) ==
LOC: ERS 09:22
DX: M54.16 Radiculopathy, lumbar region (principal); R10.9 Unspecified abdominal pain; E11.9 Type 2 diabetes mellitus without complications; I25.10 Atherosclerotic heart disease of native coronary artery without angina pectoris; Z79.84 Long term (current) use of oral hypoglycemic drugs; Z79.899 Other long term (current) drug therapy
CPT/HCPCS: 74176; 80053; 81003; 81025; 83690; 85025; 96374; J1885

== ENCOUNTER 2023-01-19 06:42 | Observation (INO) | payer BC ==
[2023-01-19 07:29] LABS: #Basophils 0.1 thou/uL (0.0-0.2); #Eosinphils 0.1 thou/uL (0.0-0.7); #Lymphocytes 2.5 thou/uL (1.20-3.40); #Monocytes 0.4 thou/uL (0.11-0.59); #Neutrophils 4.1 thou/uL (1.40-6.50); %Basophils 1.4 % (0.0-1.0); %Eosinophils 2.1 % (0.0-10.0); %Lymphocytes 34.1 % (21.0-51.0); %Monocytes 5.9 % (0.0-10.0); %Neutrophils 56.5 % (42.0-75.0); Hemoglobin 17.1 g/dL (12.0-16.0); Mean Corpuscular HGB CONC 35.5 g/dL (32.0-36.0); Mean Corpuscular Volume 87.4 fl (78.0-98.0); Mean Platelet Volume 9.4 fL (7.4-10.4); Platelet Count 233 10x3/uL (130-400); RBC Distribution Width 12.2 % (11.5-14.5); White Blood Cell (WBC) Count 7.2 10x3/uL (4.8-10.8)
[2023-01-19 07:30] LABS: Actual Bicarbonate (HCO3v) 24 mEq/L (22-28); Base Excess 0.9 mEq/L (-2.0 to +3.0); pH (venous) 7.46 (7.32-7.43)
[2023-01-19 07:31] LABS: Calcium, Ionized (venous) 1.09 mmol/L (1.16-1.32); Chloride (VBG) 99 mmol/L (98-106); Hemoglobin (Hb) 17.7 g/dL (11.7-16.0); Potassium (VBG) 4.17 mmol/L (3.70-5.30); Sodium 136.4 mmol/L (133-146)
[2023-01-19 07:47] LABS: BHCG - Serum Negative (NEGATIVE); Pregs Control Background? CLEAR/WHITE (CLR/WHITE); Pregs Control Bar Appear? YES (CONTROL BAR)
[2023-01-19 08:06] LABS: ALT (SGPT) 28 U/L (8-55); AST (SGOT) 32 U/L (5-34); Albumin 4.3 g/dL (3.5-5.0); Alkaline Phosphatase 154 U/L (40-110); Anion Gap 19 mmol/L (10-20); BUN (Urea Nitrogen) 17 mg/dL (7.0-18.7); Bilirubin, Total 0.3 mg/dL (0.2-1.2); Calc. Creatinine Clearance 0 mL/min (70-130); Calcium 9.7 mg/dL (7.8-10.44); Carbon Dioxide 20 mmol/L (22-29); Chloride 100 mmol/L (98-107); Estimated GFR 78; Globulin 3.8 g/dL (2.4-3.5); Lipase 45 U/L (8-78); Potassium 4.2 mmol/L (3.5-5.1); Protein, Total 8.1 g/dL (6.0-8.3); Sodium 135 mmol/L (136-145)
[2023-01-19 08:09] LABS: Magnesium 1.9 mg/dL (1.6-2.6); Phosphorus 4.2 mg/dL (2.3-4.7)
[2023-01-19 08:15] LABS: Glucose 431 mg/dL (70-105)
[2023-01-19] MEDS ORDERED: Insulin Regular 300 UNITS/3 ML VIAL ONE (08:35)
[2023-01-19 08:57] LABS: Bilirubin Negative (Negative); Blood, Urine Negative (Negative); Clarity Clear (Clear); Glucose, Urine (Dipstick) Greater than 1000 mg/dL (Negative); Ketone, Urine 10 mg/dL (Negative); Leukocyte Negative Leu/uL (Negative); Nitrite Negative (Negative); Protein, Urine (Dipstick) Negative (Neg-Trace); Specific Gravity, Urine 1.037 (1.002-1.036); Urobilinogen Normal mg/dL (Less than 2); pH, Urine 5.5 (5.0-9.0)
[2023-01-19] MEDS ORDERED: Meclizine HCl 25 MG TAB ONE (09:06)
[2023-01-19 09:25] LABS: SARS-CoV-2 NAA Rapid Test Not Detected (NotDetected)
[2023-01-19] MEDS ORDERED: Senokot S 8.6-50 MG TAB PO PRN (10:21)
[2023-01-19] MEDS ORDERED: Guaifenesin DM 100-10/5 ML UDCUP PO PRN (10:21)
[2023-01-19] MEDS ORDERED: HYDROcodone/Acetaminophen 5/325 mg Tablet PO PRN (10:21)
[2023-01-19] MEDS ORDERED: Ondansetron PF 4 MG/2 ML Vial IVP PRN (10:21)
[2023-01-19 10:22] VITALS: BMI 27.1
[2023-01-19] MEDS ORDERED: Dextrose 50% Abboject 50 ML SYRINGE SLOW IVP PRN (10:23)
[2023-01-19] MEDS ORDERED: Dextrose 5% in Water 1,000 ML IV PRN (10:23)
[2023-01-19 11:29] LABS: Troponin I Less than 0.010 ng/mL (< 0.028)
[2023-01-19 13:20] LABS: Troponin I Less than 0.010 ng/mL (< 0.028)
[2023-01-19] MEDS: metFORMIN 500 MG TAB PO SCH (16:31)
[2023-01-19] MEDS: Atorvastatin Calcium 40 MG TAB PO SCH (20:09)
[2023-01-19] MEDS ORDERED: Sodium Chloride 0.9% 500 ML IV SCH ×2 (20:15→21:15)
[2023-01-20] MEDS ORDERED: Sodium Chloride 0.9% 500 ML IV SCH (04:30)
[2023-01-20 05:22] LABS: #Basophils 0.1 thou/uL (0.0-0.2); #Eosinphils 0.1 thou/uL (0.0-0.7); #Lymphocytes 3.5 thou/uL (1.20-3.40); #Monocytes 0.4 thou/uL (0.11-0.59); #Neutrophils 3.5 thou/uL (1.40-6.50); %Eosinophils 1.8 % (0.0-10.0); %Lymphocytes 45.9 % (21.0-51.0); %Monocytes 4.7 % (0.0-10.0); %Neutrophils 46.5 % (42.0-75.0); Hemoglobin 15.4 g/dL (12.0-16.0); Mean Corpuscular HGB CONC 35.5 g/dL (32.0-36.0); Mean Corpuscular Hemoglobin 31.4 pg (27.0-31.0); Mean Corpuscular Volume 88.7 fl (78.0-98.0); Mean Platelet Volume 9.2 fL (7.4-10.4); Platelet Count 200 10x3/uL (130-400); RBC Distribution Width 12.2 % (11.5-14.5); Red Blood Cell (RBC) Count 4.89 mill/uL (4.20-5.40); White Blood Cell (WBC) Count 7.6 10x3/uL (4.8-10.8)
[2023-01-20 05:38] LABS: Lactic Acid 0.9 mmol/L (0.5-2.2)
[2023-01-20 05:46] LABS: Anion Gap 13 mmol/L (10-20); BUN (Urea Nitrogen) 16 mg/dL (7.0-18.7); Calc. Creatinine Clearance 84 mL/min (70-130); Calcium 8.8 mg/dL (7.8-10.44); Carbon Dioxide 23 mmol/L (22-29); Chloride 106 mmol/L (98-107); Estimated GFR 89; Glucose 225 mg/dL (70-105); Potassium 3.9 mmol/L (3.5-5.1); Sodium 138 mmol/L (136-145)
[2023-01-20 05:47] LABS: Magnesium 1.8 mg/dL (1.6-2.6)
[2023-01-20] MEDS ORDERED: Meclizine HCl 25 MG TAB PO SCH (09:00)
[2023-01-20] MEDS: Midodrine HCl 5 MG TAB PO SCH ×3 (09:03→20:15)
[2023-01-20] MEDS: Lisinopril 2.5 MG TAB PO SCH (09:04)
[2023-01-20] MEDS: metFORMIN 500 MG TAB PO SCH ×2 (09:05→17:36)
[2023-01-20] MEDS ORDERED: Iopamidol-370 76% 500 ML 1 ML ONE ×2 (11:03)
[2023-01-20] MEDS: HumaLOG 300 UNITS/3 ML VIAL SC PRN (13:33)
[2023-01-20] MEDS: Meclizine HCl 25 MG TAB PO SCH ×2 (15:17→21:14)
[2023-01-20] MEDS: Atorvastatin Calcium 40 MG TAB PO SCH (20:14)
[2023-01-21] MEDS: Meclizine HCl 25 MG TAB PO SCH (05:30)
[2023-01-21] MEDS: HumaLOG 300 UNITS/3 ML VIAL SC PRN (05:34)
[2023-01-21 08:23] VITALS: BP 116/79; TEMP 97.6
[2023-01-21] MEDS: Lisinopril 2.5 MG TAB PO SCH (09:11)
[2023-01-21] MEDS: metFORMIN 500 MG TAB PO SCH (09:12)
[2023-01-21] MEDS: Midodrine HCl 5 MG TAB PO SCH (09:17)
== END 2023-01-21 10:30 | disposition home or self-care (01) ==
LOC: ERS 06:42 → 2SW 10:09
PROVIDERS: ADMIT Hospitalist; ATTEND Hospitalist
DX: R55 Syncope and collapse (principal); E11.9 Type 2 diabetes mellitus without complications; E78.5 Hyperlipidemia, unspecified; I25.10 Atherosclerotic heart disease of native coronary artery without angina pectoris; K21.9 Gastro-esophageal reflux disease without esophagitis; I10 Essential (primary) hypertension; I37.1 Nonrheumatic pulmonary valve insufficiency; Z79.4 Long term (current) use of insulin; Z79.82 Long term (current) use of aspirin; Z79.84 Long term (current) use of oral hypoglycemic drugs; Z79.899 Other long term (current) drug therapy; Z88.0 Allergy status to penicillin; Z95.1 Presence of aortocoronary bypass graft; Z20.822 Contact with and (suspected) exposure to COVID-19
CPT/HCPCS: 36415; 36416; 70450; 70496; 70498; 70551; 71045; 80048; 80053; 81003; 82010; 82805; 83605; 83690; 83735; 84100; 84484; 84703; 85025; 93005; 93010; 93306; 93880; 94760; 96372; 96374; G0378; J1650; J1815; J2405; J7030

== ENCOUNTER 2023-06-06 10:11 | Outpatient (CLI) | payer BC | END 2023-06-06 10:12 | disposition home or self-care (01) | LOC: RAD 10:11 | PROVIDERS: ATTEND Family Medicine | DX: M79.671 Pain in right foot (principal) ==

== ENCOUNTER 2023-06-09 04:49 | Inpatient (IN) | payer BC ==
[2023-06-09] MEDS ORDERED: Ondansetron PF 4 MG/2 ML Vial ONE (05:23)
[2023-06-09] MEDS ORDERED: Ketorolac Tromethamine 30 MG/ML VIAL ONE (05:23)
[2023-06-09] MEDS ORDERED: Dicyclomine 20 MG/2 ML VIAL ONE (05:24)
[2023-06-09 05:37] LABS: #Neutrophils 9.7 thou/uL (1.40-6.50); %Basophils 0.4 % (0.0-1.0); %Eosinophils 0.3 % (0.0-10.0); %Monocytes 0.2 % (0.0-10.0); %Neutrophils 91.9 % (42.0-75.0); Hemoglobin 17.3 g/dL (12.0-16.0); Mean Corpuscular HGB CONC 34.6 g/dL (32.0-36.0); Mean Corpuscular Hemoglobin 29.6 pg (27.0-31.0); Mean Corpuscular Volume 85.6 fl (78.0-98.0); Mean Platelet Volume 10.1 fL (7.4-10.4); Platelet Count 234 10x3/uL (130-400); RBC Distribution Width 13.5 % (11.5-14.5); Red Blood Cell (RBC) Count 5.84 mill/uL (4.20-5.40); White Blood Cell (WBC) Count 10.5 10x3/uL (4.8-10.8)
[2023-06-09 05:44] LABS: BHCG - Serum Negative (NEGATIVE); Pregs Control Background? CLEAR/WHITE (CLR/WHITE); Pregs Control Bar Appear? YES (CONTROL BAR)
[2023-06-09 05:49] LABS: Actual Bicarbonate (HCO3v) 21.4 mEq/L (22-28); Base Excess -2.2 mEq/L (-2.0 to +3.0); Calcium, Ionized (venous) 1.14 mmol/L (1.16-1.32); Chloride (VBG) 102 mmol/L (98-106); Hematocrit-VBG 55 % (36.0-47.0); Hemoglobin (Hb) 18.8 g/dL (11.7-16.0); Potassium (VBG) 3.56 mmol/L (3.70-5.30); Sodium 135.8 mmol/L (133-146)
[2023-06-09 06:03] LABS: ALT (SGPT) 51 U/L (8-55); AST (SGOT) 129 U/L (5-34); Albumin 4.5 g/dL (3.5-5.0); Alkaline Phosphatase 235 U/L (40-110); Anion Gap 17 mmol/L (10-20); BUN (Urea Nitrogen) 21 mg/dL (7.0-18.7); Bilirubin, Total 0.6 mg/dL (0.2-1.2); Calc. Creatinine Clearance 0 mL/min (70-130); Calcium 9.8 mg/dL (7.8-10.44); Carbon Dioxide 21 mmol/L (22-29); Chloride 103 mmol/L (98-107); Estimated GFR 56; Globulin 4.4 g/dL (2.4-3.5); Glucose 262 mg/dL (70-105); Lipase 18 U/L (8-78); Potassium 3.3 mmol/L (3.5-5.1); Protein, Total 8.9 g/dL (6.0-8.3); Sodium 138 mmol/L (136-145)
[2023-06-09] MEDS ORDERED: Sodium Chloride 0.9% 100 ML ONE (07:27)
[2023-06-09] MEDS ORDERED: cefTRIAXone (ROCEPHIN) 1 GM VIAL ONE (07:28)
[2023-06-09 08:35] LABS: Lactic Acid 1.5 mmol/L (0.5-2.2)
[2023-06-09 09:20] LABS: Bacteria/HPF None Seen HPF (None Seen); Bilirubin Negative (Negative); Blood, Urine Negative (Negative); CAUTI Indications for Culture Dysuria,urgency,freq; Clarity Clear (Clear); Glucose, Urine (Dipstick) Greater than 1000 mg/dL (Negative); Ketone, Urine Negative (Negative); Leukocyte Negative Leu/uL (Negative); Nitrite Negative (Negative); Protein, Urine (Dipstick) Negative (Neg-Trace); RBC/HPF 0-3 HPF (0-3); Specific Gravity, Urine 1.035 (1.002-1.036); Squamous Epithelial 0-3 HPF (0-3); Urobilinogen Normal mg/dL (Less than 2); WBC/HPF 0-3 HPF (0-3); pH, Urine 7.5 (5.0-9.0)
[2023-06-09 09:25] LABS: Urine Culture Reflex No No
[2023-06-09] MEDS ORDERED: HumaLOG 300 UNITS/3 ML VIAL SC PRN ×2 (12:20)
[2023-06-09] MEDS ORDERED: Ondansetron ODT 4 MG TAB PO PRN (12:20)
[2023-06-09] MEDS ORDERED: Glucagon 1 MG/ML KIT IM PRN (12:20)
[2023-06-09] MEDS ORDERED: Dextrose 5% in Water 1,000 ML IV PRN (12:20)
[2023-06-09] MEDS ORDERED: Dextrose 50% Abboject 50 ML SYRINGE SLOW IVP PRN (12:20)
[2023-06-09] MEDS ORDERED: Iopamidol-370 76% 500 ML MDV (1 ML CHARGE) ONE (13:45)
[2023-06-09] MEDS: Acetaminophen 500 MG TAB PO PRN (15:58)
[2023-06-09] MEDS: Sodium Chloride 0.9% 1,000 ML IV SCH ×2 (15:58→19:56)
[2023-06-09 17:13] VITALS: BMI 25.8
[2023-06-09] MEDS: Famotidine 20 MG TAB PO SCH (19:56)
[2023-06-09] MEDS: Midodrine HCl 5 MG TAB PO SCH (19:56)
[2023-06-10] MEDS: Ondansetron PF 4 MG/2 ML Vial IVP PRN (00:19)
[2023-06-10] MEDS: Sodium Chloride 0.9% 1,000 ML IV SCH ×3 (02:20→15:44)
[2023-06-10] MEDS ORDERED: Promethazine HCl 12.5 MG in Sodium Chloride 0.9% 50 ML IVPB SCH (03:30)
[2023-06-10 04:32] LABS: Mean Corpuscular HGB CONC 33.7 g/dL (32.0-36.0); Mean Corpuscular Hemoglobin 29.8 pg (27.0-31.0); Mean Platelet Volume 11.5 fL (7.4-10.4); Platelet Count 165 10x3/uL (130-400); Red Blood Cell (RBC) Count 4.57 mill/uL (4.20-5.40)
[2023-06-10 04:42] LABS: Hematocrit 40.3 % (36.0-47.0); Hemoglobin 13.6 g/dL (12.0-16.0); White Blood Cell (WBC) Count 25.2 10x3/uL (4.8-10.8)
[2023-06-10 04:43] LABS: Mean Corpuscular Volume 88.2 fl (78.0-98.0)
[2023-06-10 04:44] LABS: Delete Auto Diff?? YES; Manual Diff?? YES
[2023-06-10 05:05] LABS: ALT (SGPT) 47 U/L (8-55); AST (SGOT) 56 U/L (5-34); Albumin 3.1 g/dL (3.5-5.0); Alkaline Phosphatase 156 U/L (40-110); Anion Gap 13 mmol/L (10-20); BUN (Urea Nitrogen) 24 mg/dL (7.0-18.7); Bilirubin, Total 0.6 mg/dL (0.2-1.2); Calc. Creatinine Clearance 63 mL/min (70-130); Carbon Dioxide 20 mmol/L (22-29); Chloride 109 mmol/L (98-107); Estimated GFR 62; Globulin 3.3 g/dL (2.4-3.5); Glucose 174 mg/dL (70-105); Potassium 3.7 mmol/L (3.5-5.1); Protein, Total 6.4 g/dL (6.0-8.3); Sodium 138 mmol/L (136-145)
[2023-06-10 05:26] LABS: Band 33 % (5-11); Burr Cells SLIGHT = 2-5 cells HPF (0-1); Lymphocytes 1 % (21-51); Macrocytosis SLIGHT = 6-15 cells HPF (0-5); Metamyelocyte 6 % (0-0); Monocytes 2 % (0-10); Neutrophil 58 % (42-75); Platelet Adequacy Comment Platelets Normal; Reactive Lymphocytes 1 % (0-10); Total Cell Count 116
[2023-06-10] MEDS ORDERED: cefTRIAXone\\ROCEPHIN 2 GM in Sodium Chloride 0.9% 100 ML IVPB SCH (08:00)
[2023-06-10] MEDS: Midodrine HCl 5 MG TAB PO SCH ×3 (09:36→20:57)
[2023-06-10] MEDS: Aspirin 81 mg Enteric Coated Tablet PO SCH (09:36)
[2023-06-10] MEDS: Famotidine 20 MG TAB PO SCH ×2 (09:37→20:56)
[2023-06-10] MEDS: Acetaminophen 500 MG TAB PO PRN ×2 (09:37→15:45)
[2023-06-10] MEDS: Cefepime 2 GM in Sodium Chloride 0.9% 100 ML IVPB SCH (15:47)
[2023-06-10] MEDS: traMADol HCl 50 MG TAB PO PRN (17:39)
[2023-06-10] MEDS: Ibuprofen 200 MG TAB PO PRN (20:56)
[2023-06-10] MEDS: Gabapentin 100 MG CAP PO SCH (20:57)
[2023-06-11 04:09] LABS: #Basophils 0.1 thou/uL (0.0-0.2); #Eosinphils 0.3 thou/uL (0.0-0.7); #Monocytes 0.5 thou/uL (0.11-0.59); #Neutrophils 13.1 thou/uL (1.40-6.50); %Basophils 0.4 % (0.0-1.0); %Eosinophils 1.7 % (0.0-10.0); %Lymphocytes 9.5 % (21.0-51.0); %Neutrophils 80.2 % (42.0-75.0); Hematocrit 38.4 % (36.0-47.0); Hemoglobin 12.8 g/dL (12.0-16.0); Mean Corpuscular HGB CONC 33.3 g/dL (32.0-36.0); Mean Corpuscular Volume 89.9 fl (78.0-98.0); Mean Platelet Volume 11.5 fL (7.4-10.4); Platelet Count 134 10x3/uL (130-400); RBC Distribution Width 14.3 % (11.5-14.5); Red Blood Cell (RBC) Count 4.27 mill/uL (4.20-5.40); White Blood Cell (WBC) Count 16.2 10x3/uL (4.8-10.8)
[2023-06-11 04:31] LABS: Anion Gap 11 mmol/L (10-20); BUN (Urea Nitrogen) 24 mg/dL (7.0-18.7); Calc. Creatinine Clearance 74 mL/min (70-130); Calcium 7.9 mg/dL (7.8-10.44); Carbon Dioxide 19 mmol/L (22-29); Chloride 110 mmol/L (98-107); Estimated GFR 72; Glucose 130 mg/dL (70-105); Potassium 3.9 mmol/L (3.5-5.1); Sodium 136 mmol/L (136-145)
[2023-06-11] MEDS: Cefepime 2 GM in Sodium Chloride 0.9% 100 ML IVPB SCH ×2 (04:46→15:15)
[2023-06-11] MEDS: Sodium Chloride 0.9% 1,000 ML IV SCH ×3 (04:46→09:23)
[2023-06-11] MEDS: Aspirin 81 mg Enteric Coated Tablet PO SCH (08:43)
[2023-06-11] MEDS: Gabapentin 100 MG CAP PO SCH ×3 (08:43→20:24)
[2023-06-11] MEDS: Sertraline 25 MG TAB PO SCH (08:43)
[2023-06-11] MEDS: Midodrine HCl 5 MG TAB PO SCH ×3 (08:44→20:23)
[2023-06-11] MEDS: Atorvastatin Calcium 40 MG TAB PO SCH (08:44)
[2023-06-11] MEDS: Insulin Glargine 30 UNITS/0.3 ML VIAL SC SCH (08:45)
[2023-06-11] MEDS ORDERED: Pantoprazole 40 MG GRANULES PACKET PO SCH (09:00)
[2023-06-11] MEDS: Famotidine 20 MG TAB PO SCH ×2 (09:21→20:23)
[2023-06-11] MEDS: Empagliflozin 25 MG TAB PO SCH (09:21)
[2023-06-11] MEDS: Acetaminophen 500 MG TAB PO PRN (09:22)
[2023-06-11] MEDS: Meclizine HCl 25 MG TAB PO SCH ×2 (13:24→20:23)
[2023-06-11] MEDS: traMADol HCl 50 MG TAB PO PRN (13:24)
[2023-06-11] MEDS: Acetaminophen/Codeine 30-300mg Tablet PO PRN (15:14)
[2023-06-11] MEDS: Ondansetron PF 4 MG/2 ML Vial IVP PRN (15:15)
[2023-06-11] MEDS: Ketorolac Tromethamine 30 MG/ML VIAL IVP PRN (16:52)
[2023-06-11] MEDS: Ibuprofen 200 MG TAB PO PRN (20:22)
[2023-06-12] MEDS: Cefepime 2 GM in Sodium Chloride 0.9% 100 ML IVPB SCH ×2 (03:59→15:50)
[2023-06-12] MEDS: Sodium Chloride 0.9% 1,000 ML IV SCH (03:59)
[2023-06-12] MEDS: Ketorolac Tromethamine 30 MG/ML VIAL IVP PRN ×2 (04:02→11:45)
[2023-06-12 04:16] LABS: #Basophils 0.1 thou/uL (0.0-0.2); #Eosinphils 0.3 thou/uL (0.0-0.7); #Monocytes 0.5 thou/uL (0.11-0.59); #Neutrophils 7.7 thou/uL (1.40-6.50); %Basophils 0.6 % (0.0-1.0); %Eosinophils 3.1 % (0.0-10.0); %Monocytes 5.4 % (0.0-10.0); %Neutrophils 76.4 % (42.0-75.0); Hemoglobin 13.4 g/dL (12.0-16.0); Mean Corpuscular HGB CONC 33.5 g/dL (32.0-36.0); Mean Corpuscular Hemoglobin 29.6 pg (27.0-31.0); Mean Corpuscular Volume 88.3 fl (78.0-98.0); Mean Platelet Volume 11.6 fL (7.4-10.4); Platelet Count 138 10x3/uL (130-400); RBC Distribution Width 14.3 % (11.5-14.5); Red Blood Cell (RBC) Count 4.53 mill/uL (4.20-5.40); White Blood Cell (WBC) Count 10.1 10x3/uL (4.8-10.8)
[2023-06-12 04:42] LABS: Anion Gap 12 mmol/L (10-20); BUN (Urea Nitrogen) 19 mg/dL (7.0-18.7); Calc. Creatinine Clearance 71 mL/min (70-130); Calcium 8.4 mg/dL (7.8-10.44); Carbon Dioxide 20 mmol/L (22-29); Chloride 109 mmol/L (98-107); Estimated GFR 66; Glucose 84 mg/dL (70-105); Potassium 3.7 mmol/L (3.5-5.1); Sodium 137 mmol/L (136-145)
[2023-06-12] MEDS: Meclizine HCl 25 MG TAB PO SCH ×3 (05:56→21:02)
[2023-06-12] MEDS: Aspirin 81 mg Enteric Coated Tablet PO SCH (08:39)
[2023-06-12] MEDS: Midodrine HCl 5 MG TAB PO SCH ×3 (08:39→21:54)
[2023-06-12] MEDS: Atorvastatin Calcium 40 MG TAB PO SCH (08:39)
[2023-06-12] MEDS: Gabapentin 100 MG CAP PO SCH ×3 (08:39→21:03)
[2023-06-12] MEDS: Insulin Glargine 30 UNITS/0.3 ML VIAL SC SCH (08:39)
[2023-06-12] MEDS: Empagliflozin 25 MG TAB PO SCH (08:39)
[2023-06-12] MEDS: Sertraline 25 MG TAB PO SCH (08:39)
[2023-06-12] MEDS: Famotidine 20 MG TAB PO SCH ×2 (08:39→21:02)
[2023-06-12] MEDS: Acetaminophen/Codeine 30-300mg Tablet PO PRN (21:06)
[2023-06-13] MEDS: Cefepime 2 GM in Sodium Chloride 0.9% 100 ML IVPB SCH (04:21)
[2023-06-13] MEDS: Ketorolac Tromethamine 30 MG/ML VIAL IVP PRN (04:22)
[2023-06-13] MEDS: Meclizine HCl 25 MG TAB PO SCH (06:21)
[2023-06-13 07:39] VITALS: BP 126/75; TEMP 97.9
[2023-06-13] MEDS: Midodrine HCl 5 MG TAB PO SCH (08:38)
[2023-06-13] MEDS: Gabapentin 100 MG CAP PO SCH (08:39)
[2023-06-13] MEDS: Insulin Glargine 30 UNITS/0.3 ML VIAL SC SCH (08:39)
[2023-06-13] MEDS: Aspirin 81 mg Enteric Coated Tablet PO SCH (08:39)
[2023-06-13] MEDS: Sertraline 25 MG TAB PO SCH (08:39)
[2023-06-13] MEDS: Famotidine 20 MG TAB PO SCH (08:39)
[2023-06-13] MEDS: Atorvastatin Calcium 40 MG TAB PO SCH (08:39)
[2023-06-13] MEDS: Empagliflozin 25 MG TAB PO SCH (08:39)
== END 2023-06-13 11:00 | disposition home or self-care (01) | DRG 872 ==
LOC: ERS 04:49 → ERHOLD 12:20 → 2NO 15:32
PROVIDERS: ADMIT Family Medicine; ATTEND Family Medicine
PROC: 4A043R1 Measurement of Venous Saturation, Peripheral, Percutaneous Approach (ICD-10-PCS; principal; 2023-06-09)
PROC: 3E03329 Introduction of Other Anti-infective into Peripheral Vein, Percutaneous Approach (ICD-10-PCS; 2023-06-10)
DX: A41.59 Other Gram-negative sepsis (principal); N12 Tubulo-interstitial nephritis, not specified as acute or chronic; N17.9 Acute kidney failure, unspecified; E86.0 Dehydration; I25.10 Atherosclerotic heart disease of native coronary artery without angina pectoris; E78.5 Hyperlipidemia, unspecified; K21.9 Gastro-esophageal reflux disease without esophagitis; I10 Essential (primary) hypertension; E11.9 Type 2 diabetes mellitus without complications; E87.6 Hypokalemia; Z95.1 Presence of aortocoronary bypass graft; Z79.82 Long term (current) use of aspirin; Z79.2 Long term (current) use of antibiotics; Z79.4 Long term (current) use of insulin; Z98.890 Other specified postprocedural states; Z88.0 Allergy status to penicillin; Z79.84 Long term (current) use of oral hypoglycemic drugs; Z79.899 Other long term (current) drug therapy
CPT/HCPCS: 36415; 36416; 74177; 76705; 80048; 80053; 82805; 83605; 83690; 84703; 85025; 87040; 87077; 87149; 87186; 93005; 96361; 96365; 96372; 96375; J0692; J0696; J1815; J1885; J2405; J2550; J3490; J7050; Q0162; Q9967

== ENCOUNTER 2023-10-04 12:13 | Outpatient (CLI) | payer BC ==
[2023-10-04 13:13] LABS: #Basophils 0.1 10x3/uL (0.0-0.2); #Eosinphils 0.2 10x3/uL (0.0-0.5); #Monocytes 0.5 10x3/uL (0.0-1.1); #Neutrophils 4.3 10x3/uL (1.5-8.4); %Basophils 0.6 % (0.0-2.0); %Eosinophils 2.3 % (0.0-6.0); %Lymphocytes 38.9 % (18.0-47.0); %Monocytes 5.5 % (0.0-10.0); %Neutrophils 52.5 % (40.0-75.0); Hematocrit 43.7 % (34.9-44.5); Hemoglobin 15.2 g/dL (12.0-15.5); Mean Corpuscular HGB CONC 34.8 g/dL (32.0-36.0); Mean Corpuscular Hemoglobin 28.7 pg (27.0-33.0); Mean Corpuscular Volume 82.6 fl (81.6-98.3); Mean Platelet Volume 10.6 fl (7.4-10.4); Platelet Count 302 10x3/uL (150-450); RBC Distribution Width 13.2 % (11.5-14.5); Red Blood Cell (RBC) Count 5.29 10x6/uL (3.90-5.03); White Blood Cell (WBC) Count 8.2 10x3/uL (3.5-10.5)
[2023-10-04 13:30] LABS: ALT (SGPT) 19 U/L (8-55); AST (SGOT) 18 U/L (5-34); Albumin 4.2 g/dL (3.5-5.0); Alkaline Phosphatase 120 U/L (40-110); Anion Gap 14 mmol/L (10-20); BUN (Urea Nitrogen) 17 mg/dL (7.0-18.7); Bilirubin, Direct 0.1 mg/dL (0.1-0.3); Bilirubin, Total 0.4 mg/dL (0.2-1.2); Calc. Creatinine Clearance 0 mL/min (70-130); Calcium 9.5 mg/dL (7.8-10.44); Carbon Dioxide 22 mmol/L (22-29); Chloride 106 mmol/L (98-107); Estimated GFR 106; Glucose 111 mg/dL (70-105); Potassium 4.2 mmol/L (3.5-5.1); Protein, Total 7.8 g/dL (6.0-8.3); Sodium 138 mmol/L (136-145)
== END 2023-10-04 12:14 | disposition home or self-care (01) ==
LOC: LABBT 12:13
PROVIDERS: ATTEND Surgery
DX: Z01.812 Encounter for preprocedural laboratory examination (principal); K80.20 Calculus of gallbladder without cholecystitis without obstruction
CPT/HCPCS: 80048; 80076; 85025

== ENCOUNTER 2023-10-05 07:49 | Day surgery (SDC) | payer BC ==
[2023-10-04 12:49] VITALS: BMI 27.7
[2023-10-05] MEDS ORDERED: EPINEPHrine 1 MG/ML VIAL ONE (08:36)
[2023-10-05] MEDS ORDERED: Indocyanine Green 25 MG/10 ML VIAL ONE (08:36)
[2023-10-05] MEDS ORDERED: Bupivacaine 0.25% HCL 30 ML VIAL ONE (08:37)
[2023-10-05] MEDS ORDERED: Midazolam HCl 2 mg/2 ml Vial ONE (08:40)
[2023-10-05] MEDS ORDERED: Lidocaine 1% MPF 2 ML VIAL ONE (08:40)
[2023-10-05] MEDS ORDERED: Famotidine/PF 20 mg/2ml Vial ONE (08:41)
[2023-10-05] MEDS ORDERED: fentaNYL PF 100 MCG/2 ML SYRINGE ONE (09:11)
[2023-10-05] MEDS ORDERED: PROPOFOL 20 ML ONE (09:11)
[2023-10-05] MEDS ORDERED: Rocuronium Bromide 10 MG/ML (10ML VIAL) ONE ×2 (09:12→10:08)
[2023-10-05] MEDS ORDERED: Lidocaine 1% PF 5 ML VIAL ONE ×2 (09:12→10:08)
[2023-10-05] MEDS ORDERED: LevoFLOXacin 500 mg/D5W 100 ML BAG ONE (09:27)
[2023-10-05] MEDS ORDERED: Ondansetron PF 4 MG/2 ML Vial ONE ×2 (10:08→11:06)
[2023-10-05] MEDS ORDERED: PHENYLEPHRINE-NS 100 MCG/ML 10 ML SYRINGE ONE (10:08)
[2023-10-05] MEDS ORDERED: PROPOFOL 200 MG/20 ML VIAL ONE (10:08)
[2023-10-05] MEDS ORDERED: Ketorolac Tromethamine 30 MG/ML VIAL ONE ×2 (10:08→11:06)
[2023-10-05] MEDS ORDERED: SUGAMMADEX SODIUM 200 MG/2 ML VIAL ONE (11:07)
[2023-10-05] MEDS ORDERED: fentaNYL 50 mcg/mL 1 mL Vial ONE (13:30)
[2023-10-05] MEDS ORDERED: Haloperidol Lactate 5 MG/ML VIAL ONE (14:26)
[2023-10-05] MEDS ORDERED: HYDROcodone/Acetaminophen 5/325 mg Tablet ONE (14:59)
== END 2023-10-05 16:06 | disposition home or self-care (01) ==
LOC: SDC 07:49
PROVIDERS: ATTEND Surgery
PROC: 0FT44ZZ Resection of Gallbladder, Percutaneous Endoscopic Approach (ICD-10-PCS; principal; 2023-10-05)
DX: K80.12 Calculus of gallbladder with acute and chronic cholecystitis without obstruction (principal)
CPT/HCPCS: 36416; 88304; J0171; J1630; J1885; J1956; J2250; J2405; J2704; J3010; S0020; S0028